=== PATIENT | male | born 1950 | race Caucasian/White ===

== ENCOUNTER 2019-04-06 07:43 | Day surgery (SDC) | payer MEDICARE, OTHER, SELFPAY ==
[2019-04-06] VITALS (7 sets, daily range): BP systolic 112–159; BP diastolic 70–94; PULSE 58–65; RESP 10–16; TEMP 36–36.7; O2SAT 92–97; BMI 22.7
--- NOTE | 2019-04-06 | PATH_ITS ---
[facility] Accession Number: [id number] . 01 Material submitted: . body - NO SITE DESIGNATED . 01 Clinical history: . GASTROINTESTINAL STROMAL TUMOR OF RECTUM . 02 Diagnosis: Rectum, Biopsy: Colorectal mucosa and anal squamous mucosa with mild chronic inflammation. No evidence of residual neoplasm. Negative for dysplasia or malignancy. [facility] 04/07/2019 1045 Local . 02 Electronically signed: . Dorian Ignacio MD, PhD, Pathologist NPI- [id number] . 01 Gross description: . NO SITE DESIGNATED: Received in formalin are 3 fragment(s) of ng, soft tissue measuring 0.1 x 0.1 x 0.1 cm to 0.3 x 0.2 x 0.2 cm which is entirely submitted and submitted entirely in 1 cassette(s) /[facility]/06/20191957 Local . 02 Pathologist provided ICD-10: C49.A5 . 02 CPT . 293078 Performed at: 01 [facility] [address], [place], [place] [id number] MD Nawaf Mcgarry MD Phone: [phone] Performed at: 02 [facility] [address] [place], [place] [id number] MD Rena Ambriz MD Phone: [phone]
[2019-04-06] MEDS: SODIUM CHLORIDE 0.9% 1,000 ML 200 ML IV (08:15)
--- NOTE | 2019-04-06 08:21 | P.HP_ITS ---
History of Present Illness History of Present Illness Date Patient Seen: 04/06/19 Time Patient Seen: 08:21 Chief complaint: [id number] Narrative: The patient is a gentleman who is here for a surveillance flexible sigmoidoscopy. He had a very small nodule removed by me that was consistent with a gist tumor. He was referred to [facility] for wider excision. Since that wider excision he has experienced urgency with defecation. Patient History Medical History (Updated 04/06/19 @ 08:22 by Magdiel Mendoza MD) GIST (gastrointestinal stroma tumor), malignant, colon (Acute) Social History household members: spouse Family & Social History Social History: household members spouse Meds Home Medications and Allergies Home Medications Medication Instructions Recorded Confirmed Type acetazolamide 125 mg PO BID 04/06/19 04/06/19 History Allergies Allergy/AdvReac Type Severity Reaction Status Date / Time No Known Drug Allergies Allergy Verified 04/06/19 08:10 Review of Systems Review of Systems ROS Unobtainable: All systems reviewed & are unremarkable except as noted in HPI and below Genitourinary Comments: Has frequency. Post radiation treatment to his prostate. Exam Vital Signs (past 8 hours): - 04/06/19 08:16 Temperature 98.1 F Pulse Rate 61 Respiratory Rate 14 Blood Pressure 159/94 H Pulse Oximetry 96 Oxygen Delivery Method Room Air Narrative Exam Narrative: Operative thin gentleman in no apparent distress. Eyes nonicteric. Lungs are clear to auscultation. No rales or rhonchi. Heart regular rate and rhythm without murmur gallop. Abdomen is scaphoid soft nontender. Assessment & Plan Assessment & Plan narrative: Flexible sigmoidoscopy. I have discussed the procedure. Risks of bleeding perforation discussed.
--- NOTE | 2019-04-06 08:24 | PM.PREOP ---
Pre-operative Note Interval Note History & Physical reviewed/Exam performed by Physician: Yes Changes to H&P: No ASA Class (for procedural sedation): II
--- NOTE | 2019-04-06 08:59 | PM.OP.ENDO ---
Operative Date/Time/Diagnoses Date of procedure: 04/06/19 Time of procedure: 08:59 Pre-op diagnosis: History of gist tumor near anal verge Post-op diagnosis: same Procedure & Clinicians Study performed: Flexible sigmoidoscopy with biopsy cold Same procedure as scheduled: Yes Indications: Surveillance Surgeon: Magdiel Mendoza Procedure Notes SCOAP/Timeout: Performed Procedure in detail: Patient is placed left lateral decubitus position underwent IV sedation directed by the surgeon. This consisted of fentanyl and Versed. Digital exam was remarkable for slight decrease in sphincter tone. I could not feel any nodules in the area though I could feel what I thought was a slight defect in the muscular wall representing the prior excision site. Scope was inserted and advanced to 20 cm. It was brought slowly out. I retroflexed in the rectum and then a vertical scar from prior resection was visible. I slowly brought the scope through the anal verge in biopsied areas that were slightly irregular in appearance. Patient tolerated the procedure well Scope withdrawal time: Not applicable Sedation minutes: 7 Findings: other findings (No obvious evidence of recurrence) Specimen(s): other (Biopsies) Complications: none Post-procedure Recommendations: Other recommendation (Re-evaluate in 1 year) Follow up: as needed Disposition: PACU
[2019-04-06] MEDS: MIDAZOLAM 5 MG/5 ML VIAL IV (09:01)
[2019-04-06] MEDS: fentaNYL 250 MCG/5 ML INJ IV (09:02)
== END 2019-04-06 09:40 | disposition home or self-care (01) ==
PROVIDERS: Family Provider Family Medicine; PCP Family Medicine; Visit Provider Specialist
PROC: 0DJD8ZZ Inspection of Lower Intestinal Tract, Via Natural or Artificial Opening Endoscopic (ICD-10-PCS; CPT 45378; principal; 2019-04-06 08:45)
DX: C49.A5 Gastrointestinal stromal tumor of rectum (principal)
CPT/HCPCS: 45330; 45331; 99152; J2250; J3010

== ENCOUNTER 2020-02-01 13:36 | Emergency (ER) | payer MEDICARE, OTHER, SELFPAY ==
[2020-02-01 13:44] VITALS: BP 109/77; PULSE 99; RESP 14; TEMP 36.7; O2SAT 99
--- NOTE | 2020-02-01 14:17 | ED.ALLEREA ---
HPI - Allergic Reaction <Minerva Martínez PA-C - Last Filed: 02/01/20 22:14> General Chief complaint: Allergic Reaction Stated complaint: BROKEN OUT IN INFLAMATTION/HIVES Time Seen by Provider: 02/01/20 13:49 Source: patient Mode of arrival: Ambulatory History of Present Illness HPI narrative: This is a 69-year-old gentleman with no history of anaphylaxis or allergy to presents to the emergency department complaining of full body hives redness and itching of his skin that began today [place] 12 30 [place]. He states that it started on his hands gradually move his arms and his legs and it is so itchy he feels he can not even sit down he is working very hard to keep himself from scratching. He says he was planning to just take some Benadryl and not come to the ED but then he felt like his tongue was ?burning? which he thinks may have been anxiety? and so he elected to come to the emergency department. He states he has not had any recent changes to his medication, the only medicine he takes is Acetazolamide for chronic dizziness issues, he does note he took a naproxen about an hour before his symptoms began this afternoon but he says that he takes these occasionally and has never had an issue with it. He said that he had cottage cheese, yogurt and some berries for breakfast and he had [employer] burger for lunch none of this is food that is new for him. He has not had any other symptoms with this, and denies respiratory symptoms, swelling of his mouth or throat, gastrointestinal symptoms, diarrhea, nausea, vomiting, syncope, lightheadedness or dizziness or any other symptoms. MD complaint: allergic reaction, hives and other (itching and redness of skin) Onset (ago): hour(s) (1.5) Exposure: unknown Symptoms: rash and itching Severity: moderate Treatment prior to arrival: none Previous Allergic Reaction History: other (mild allergies as a child) Related Data Home Medications Medication Instructions Recorded Confirmed acetazolamide 125 mg PO BID 04/06/19 04/06/19 Previous Rx's Medication Instructions Recorded prednisone 20 mg PO DAILY #4 tab 02/01/20 Allergies Allergy/AdvReac Type Severity Reaction Status Date / Time No Known Drug Allergies Allergy Verified 04/06/19 08:10 Review of Systems <Minerva Martínez PA-C - Last Filed: 02/01/20 22:14> Review of Systems Narrative: GENERAL: Denies chills, fatigue, malaise, fever, sweats. HEENT: Denies sinus pain, ear pain, sore throat, difficulty swallowing, dizziness. RESPIRATORY: Denies dyspnea, cough, wheezing, hemoptysis, sputum. CARDIOVASCULAR: Denies chest pain, palpitations, orthopnea, edema, GASTROINTESTINAL: Denies nausea, vomiting, abdominal pain, diarrhea, constipation, melena. : Denies dysuria, frequency, incontinence, hematuria, urinary retention. MUSCULOSKELETAL: denies weakness, joint pain, or bony pain SKIN: Positive for full-body red itchy non raised rash that [place] 12 [place], negative for any other skin lesions, or other NEUROLOGIC: Denies weakness, headache, numbness, change in speech, confusion, seizures, incoordination. PSYCHIATRIC: No concerning psychosocial issues. 12 point review of systems is negative except for those stated above Patient History <Minerva Martínez PA-C - Last Filed: 02/01/20 22:14> Medical History (Updated 02/01/20 @ 16:01 by Minerva Martínez PA-C) GIST (gastrointestinal stroma tumor), malignant, colon (Acute) Mitral valve prolapse (Acute) Social History household members: spouse Exam <Minerva Martínez PA-C - Last Filed: 02/01/20 22:14> Narrative Exam Narrative: GENERAL: 69 year old patient appears stated age. Well-nourished, well-developed patient, in moderate distress. HEAD: Atraumatic. Normocephalic. EYES: Pupils equal round and reactive. Extraocular motions intact. No scleral icterus. No injection or drainage. ENT: Nose without bleeding, purulent drainage. Tongue is not enlarged, there is no evidence of angioedema, Throat without erythema, tonsillar hypertrophy or exudate. Airway patent. NECK: Trachea midline. Non tender, no stridor with auscultation of trachea CARDIOVASCULAR: Regular rate and rhythm without murmurs, gallops, or rubs. RESPIRATORY: Clear to auscultation. Breath sounds equal bilaterally. No wheezes, rales, or rhonchi. GASTROINTESTINAL: Abdomen soft, non-tender, nondistended. EXTREMITIES: No edema or joint tenderness. BACK: Nontender without deformity or crepitance. No flank tenderness. NEURO: AOx3. SKIN: There is a macular erythematous rash diffusely covering his entire visualized skin area including his legs, torso, arms and back it is less apparent on his face, it is non bullous, non blistering, without any areas of open skin. Palms are also slightly erythematous. Initial Vital Signs Initial Vital Signs: Vital Signs Temperature 98.0 F 02/01/20 13:44 Pulse Rate 99 H 02/01/20 13:44 Respiratory Rate 14 02/01/20 13:44 Blood Pressure 109/77 02/01/20 13:44 Pulse Oximetry 99 02/01/20 13:44 <Deedee Eduardo DO - Last Filed: 02/06/20 07:22> Initial Vital Signs Initial Vital Signs: Vital Signs Temperature 98.0 F 02/01/20 13:44 Pulse Rate 99 H 02/01/20 13:44 Respiratory Rate 14 02/01/20 13:44 Blood Pressure 109/77 02/01/20 13:44 Pulse Oximetry 99 02/01/20 13:44 Scores <Minerva Martínez PA-C - Last Filed: 02/01/20 22:14> GCS Brie coma scale eye opening: Spontaneous [place] coma scale verbal response: Orientated B[place] coma scale motor response: Obey commands Brie coma scale total score: 15 Course <MARISOL Glez Last Filed: 02/01/20 22:14> Course Course Narrative: Patient is feeling significantly better, the redness and itchiness of his skin is almost completely resolved he has not developed any new symptoms, fluids and famotidine are still going in. 15:05 Orders Ordered: Discontinued Medications Diphenhydramine HCl (Benadryl) 25 mg IV NOW ONE Stop: 02/01/20 14:19 Last Admin: 02/01/20 14:49 Dose: 25 mg Documented by: SARAH Sodium Chloride (Normal Saline 0.9%) 1,000 mls @ 500 mls/hr IV BOLUS ONE Stop: 02/01/20 16:26 Last Infusion: 02/01/20 16:07 Dose: 0 mls/hr Documented by: Admin: 02/01/20 14:49 Dose: 500 mls/hr Documented by: SARAH Famotidine (Pepcid) 20 mg in 50 mls @ 200 mls/hr IV NOW ONE Stop: 02/01/20 14:32 Last Infusion: 02/01/20 15:33 Dose: 0 mls/hr Documented by: Admin: 02/01/20 14:49 Dose: 200 mls/hr Documented by: SARAH Methylprednisolone (Solu-Medrol 125 Mg Vial) 125 mg IV NOW ONE Stop: 02/01/20 14:19 Last Admin: 02/01/20 14:49 Dose: 125 mg Documented by: SARAH Vital Signs Vital signs: Vital Signs - 8 hr 02/01/20 16:08 Pulse Rate 68 Respiratory Rate 14 Blood Pressure 116/69 Pulse Oximetry 99 <Deedee Eduardo DO - Last Filed: 02/06/20 07:22> Orders Ordered: Discontinued Medications Diphenhydramine HCl (Benadryl) 25 mg IV NOW ONE Stop: 02/01/20 14:19 Last Admin: 02/01/20 14:49 Dose: 25 mg Documented by: SARAH Sodium Chloride (Normal Saline 0.9%) 1,000 mls @ 500 mls/hr IV BOLUS ONE Stop: 02/01/20 16:26 Last Infusion: 02/01/20 16:07 Dose: 0 mls/hr Documented by: Admin: 02/01/20 14:49 Dose: 500 mls/hr Documented by: SARAH Famotidine (Pepcid) 20 mg in 50 mls @ 200 mls/hr IV NOW ONE Stop: 02/01/20 14:32 Last Infusion: 02/01/20 15:33 Dose: 0 mls/hr Documented by: Admin: 02/01/20 14:49 Dose: 200 mls/hr Documented by: SARAH Methylprednisolone (Solu-Medrol 125 Mg Vial) 125 mg IV NOW ONE Stop: 02/01/20 14:19 Last Admin: 02/01/20 14:49 Dose: 125 mg Documented by: SARAH Vital Signs Vital signs: Vital Signs - 8 hr 02/01/20 16:08 Pulse Rate 68 Respiratory Rate 14 Blood Pressure 116/69 Pulse Oximetry 99 MDM - Allergic Reaction <Minerva Martínez PA-C - Last Filed: 02/01/20 22:14> Differential Diagnosis Differential diagnosis: Likely anaphylaxis, allergic reaction, contact dermatitis, adverse reaction to drug and urticaria Medical Records Attestation: I reviewed the patient's medical records. Lab Data Attestation: I reviewed the patient's lab results. Result diagrams: 02/01/20 14:30 02/01/20 14:30 Labs: Lab Results 02/01/20 02/01/20 Range/Units 14:30 14:30 WBC 7.3 (4.5-11.0) X10^3/uL RBC 4.82 (4.5-5.9) X10^6/uL Hgb 16.9 (13.5-17.5) g/dL Hct 48.7 (41-53) % MCV 100.9 H (80-100) fL MCH 35.0 H (26-34) PG MCHC 34.7 (30-36) % RDW 12.3 (11.6-14.8) % Plt Count 275 (150-400) X10^3/uL Neut % (Auto) 70.1 (50-75) % Lymph % (Auto) 18.9 L (25-40) % [place] % (Auto) 8.3 (3-14) % Eos % (Auto) 2.2 (2-4) % Baso % (Auto) 0.5 (0-2) % Neut # (Auto) 5100 (2926-4937) /uL Lymph # (Auto) 1400 (6380-9237) /uL [place] # (Auto) 600 (0-900) /uL Eos # (Auto) 200 (0-450) /uL Baso # (Auto) 0 (0-100) /uL Sodium 137 (137-145) mmol/L Potassium 4.4 (3.4-5.1) mmol/L Chloride 103 (98-107) mmol/L Carbon Dioxide 26 (22-32) mmol/L BUN 24 H (9-20) mg/dL Creatinine 1.11 (0.66-1.25) mg/dL Estimated GFR > 60.0 (>60) mL/min BUN/Creatinine Ratio 21.6 (6-22) Glucose 117 H (80-110) mg/dL Calcium 9.9 (8.4-10.2) mg/dL Total Bilirubin 0.6 (0.2-1.3) mg/dL AST 30 (17-59) IU/L ALT 16 (<50) IU/L Alkaline Phosphatase 64 (38-126) U/L Total Protein 7.1 (6.3-8.2) g/dL Albumin 4.5 (3.5-5.0) g/dL Globulin 2.6 (1.7-4.1) g/dL Albumin/Globulin Ratio 1.7 (1.0-2.8) MDM Narrative Medical decision making narrative: This is a 69-year-old male with history of GIST and chronic vertigo who presents complaining of a full-body itchy rash that developed rapidly over the course of the last 2 hours beginning while he was [place] the [place] 07 26. No history of similar. No medication changes or new environmental or food exposures. Differential diagnoses considered include allergic reaction, drug reaction, phototoxic reaction, contact dermatitis anaphylaxis, photoallergic eruption, angioedema Patient was not in any respiratory distress had no GI symptoms, no low BP or systemic symptoms suggestive of anaphylaxis; I have low suspicion for a drug reaction as he has had no new medications recently or changes to his medicine, it is possible that he had a photo allergic eruption, his rash was most most consistent with a photo toxic eruption, as it resembled a sunburn though it was notably present even on areas not exposed to sun and he has no history of similar; etiology of his reaction is unclear, however he had a diffuse full body rash that was very pruritic. He was treated with Benadryl, Pepcid, Solu-Medrol IV and IV fluids and had complete relief of his symptoms. He was discharged with instructions to have close follow-up with his PCP, advised he may consider seeing an senior windows systems engineer, advised to discontinue any use of naproxen until further notice. He was also given a prescription for prednisone and advised to continue taking Benadryl for the next few days and carry it with him in the event of future reactions. Emergency return precautions were provided, all questions were answered. <Deedee Eduardo, DO - Last Filed: 02/06/20 07:22> Lab Data Labs: Lab Results 02/01/20 02/01/20 Range/Units 14:30 14:30 WBC 7.3 (4.5-11.0) X10^3/uL RBC 4.82 (4.5-5.9) X10^6/uL Hgb 16.9 (13.5-17.5) g/dL Hct 48.7 (41-53) % MCV 100.9 H (80-100) fL MCH 35.0 H (26-34) PG MCHC 34.7 (30-36) % RDW 12.3 (11.6-14.8) % Plt Count 275 (150-400) X10^3/uL Neut % (Auto) 70.1 (50-75) % Lymph % (Auto) 18.9 L (25-40) % [place] % (Auto) 8.3 (3-14) % Eos % (Auto) 2.2 (2-4) % Baso % (Auto) 0.5 (0-2) % Neut # (Auto) 5100 (8458-8639) /uL Lymph # (Auto) 1400 (3810-9259) /uL [place] # (Auto) 600 (0-900) /uL Eos # (Auto) 200 (0-450) /uL Baso # (Auto) 0 (0-100) /uL Sodium 137 (137-145) mmol/L Potassium 4.4 (3.4-5.1) mmol/L Chloride 103 (98-107) mmol/L Carbon Dioxide 26 (22-32) mmol/L BUN 24 H (9-20) mg/dL Creatinine 1.11 (0.66-1.25) mg/dL Estimated GFR > 60.0 (>60) mL/min BUN/Creatinine Ratio 21.6 (6-22) Glucose 117 H (80-110) mg/dL Calcium 9.9 (8.4-10.2) mg/dL Total Bilirubin 0.6 (0.2-1.3) mg/dL AST 30 (17-59) IU/L ALT 16 (<50) IU/L Alkaline Phosphatase 64 (38-126) U/L Total Protein 7.1 (6.3-8.2) g/dL Albumin 4.5 (3.5-5.0) g/dL Globulin 2.6 (1.7-4.1) g/dL Albumin/Globulin Ratio 1.7 (1.0-2.8) Discharge Plan Departure Patient Disposition: Home Clinical Impression: Urticaria Allergic reaction Qualifiers: Encounter type: initial encounter Qualified Code(s): T78.40XA - Allergy, unspecified, initial encounter Discharge Date/Time: 02/01/20 16:08 Instructions: DI for Hives, DI for Adverse Drug Reaction -- Allergic Activity Restrictions/Additional Instructions: Thank you for letting us to be part of your care in the emergency department today. There is no evidence of an emergent or life threatening illness at this time, but follow up with your doctor in 1-2 days is recommended nonetheless to continue to rule out serious underlying causes of your symptoms. Please call the office for an appointment. Please return to the Emergency Department for any worsening or persistent symptoms. Please take medications as directed. Strongly recommend that you follow-up with your primary care physician as a post emergency department follow-up visit, and it may be advisable to see an senior windows systems engineer. Until we have more information it may be busch to avoid taking naproxen. Although the cause of your allergic reaction today remains unclear. I recommend that you carry Benadryl with you, you can also consider carrying Pepcid and is safe to take both of these if you have a similar reaction in the future although you should definitely seek medical care if you do. I also recommend you take Benadryl and the prescription for steroids as prescribed to ensure that you do not have a rebound reaction over the next 24-48 hours. Prescriptions: New prednisone 20 mg tablet 20 mg PO DAILY Qty: 4 RF: 0 No Action acetazolamide 250 mg Tablet 125 mg PO BID RF: 0 Referrals: Harshad Fernandez MD [Primary Care Provider] - <Deedee Eduardo DO - Last Filed: 02/06/20 07:22> [facility] ED Attending Graceature Attestation: I was immediately available in the department for consultation. Documentation has been reviewed. I agree with assessment and plan.
[2020-02-01 14:43] LABS: Add Manual Diff / Slide Review NO; Basophils Absolute Auto 0 /uL (0-100); Basophils Percent Auto 0.5 % (0-2); Eosinophils Absolute Auto 200 /uL (0-450); Eosinophils Percent Auto 2.2 % (2-4); Hematocrit 48.7 % (41-53); Hemoglobin 16.9 g/dL (13.5-17.5); Lymphocytes Absolute Auto 1400 /uL (1100-4500); Lymphocytes Percent Auto 18.9 % (25-40); Mean Corpuscular HGB Conc 34.7 % (30-36); Mean Corpuscular Volume 100.9 fL (80-100); Monocytes Absolute Auto 600 /uL (0-900); Monocytes Percent Auto 8.3 % (3-14); Neutrophils Absolute Auto 5100 /uL (1500-7000); Neutrophils Percent Auto 70.1 % (50-75); Platelet Count 275 X10^3/uL (150-400); Red Blood Cell Count 4.82 X10^6/uL (4.5-5.9); Red Cell Distribution Width 12.3 % (11.6-14.8); White Blood Cell Count 7.3 X10^3/uL (4.5-11.0)
[2020-02-01] MEDS: diphenhydrAMINE 50 MG/ML VIAL 25 MG IV (14:49)
[2020-02-01] MEDS: FAMOTIDINE 20 MG/50 ML PIGGYBACK 200 MG IV (14:49)
[2020-02-01] MEDS: methylPREDNISolone 125 MG/2 ML VIAL IV (14:49)
[2020-02-01] MEDS: SODIUM CHLORIDE 0.9% 1,000 ML 500 ML IV (14:49)
[2020-02-01 14:58] LABS: Alanine Aminotransferase 16 IU/L (<50); Albumin 4.5 g/dL (3.5-5.0); Albumin Globulin Ratio 1.7 (1.0-2.8); Alkaline Phosphatase 64 U/L (38-126); Aspartate Aminotransferase 30 IU/L (17-59); BUN Creatinine Ratio 21.6 (6-22); Bilirubin Total 0.6 mg/dL (0.2-1.3); Blood Urea Nitrogen 24 mg/dL (9-20); Calcium 9.9 mg/dL (8.4-10.2); Carbon Dioxide 26 mmol/L (22-32); Chloride 103 mmol/L (98-107); Estimated Glomerular Filt Rate > 60.0 mL/min (>60); Globulin 2.6 g/dL (1.7-4.1); Glucose 117 mg/dL (80-110); HEMOLYSIS < 15 (0-50); Potassium 4.4 mmol/L (3.4-5.1); Sodium 137 mmol/L (137-145); Total Protein 7.1 g/dL (6.3-8.2)
--- NOTE | 2020-02-01 15:30 | PC.NURSE ---
Post manager media, redness of skin has decreased, denies itchiness now. Some hives still visible. Feeling drowsy from meds. will be picking pt up from ER.
[2020-02-01 16:08] VITALS: BP 116/69; PULSE 68; RESP 14; O2SAT 99
== END 2020-02-01 16:08 | disposition home or self-care (01) ==
PROVIDERS: Emergency Provider Student in an Organized Health Care Education/Training Program; Family Provider Family Medicine; PCP Family Medicine
DX: T78.40XA Allergy, unspecified, initial encounter (principal); L50.9 Urticaria, unspecified
CPT/HCPCS: 80053; 85025; 96365; 96375; 99283; 99284; J1200; J2930

== ENCOUNTER → 2020-12-18 07:03 | Outpatient (CLI) | payer MEDICARE, OTHER, SELFPAY ==
--- NOTE | 2020-12-18 | DI.MRI.S_ITS ---
PROCEDURE: MR SHOULDER RT WO/W CON INDICATIONS: Pain in right shoulder TECHNIQUE: Noncontrast oblique coronal T1 spin echo and T2 fast spin echo with fat saturation, oblique sagittal T1 spin echo and T2 fast spin echo with fat saturation, axial T1 spin echo and T2 fast spin echo with fat saturation through the shoulder. Post-contrast oblique coronal, oblique sagittal, and axial T1 spin echo with fat saturation through the shoulder. COMPARISON: None. FINDINGS: Image quality: Excellent. Rotator cuff: Tendinosis and moderate grade articular and bursal surface partial thickness tear involving distal supraspinatus is seen at its insertion on the humeral head extending to musculotendinous junction. Distal infraspinatus tendinosis and low-grade articular surface partial-thickness tear is seen. Tendinosis and low grade intrasubstance partial-thickness tear involving distal subscapularis is seen. No full-thickness rotator cuff tendon rupture. Sagittal images demonstrate no significant muscle atrophy. Bones and bursae: No suspicious bone marrow enhancement. Moderate acromioclavicular joint osteoarthritic changes are seen with downward osteophyte formation depressing the musculotendinous junction of supraspinatus. Moderate glenohumeral joint osteoarthritic changes also noted. There is small to moderate amount of joint effusion and subacromial subdeltoid bursal fluid. Capsule and soft tissues: No suspicious soft tissue enhancement. Fraying of posterior superior labrum with internal signal abnormality is seen at 11 to 12 o'clock position. Signal abnormality and contour irregularity involving anterior inferior labrum at 4 to 6 o'clock position is also seen. The long head of the biceps tendon demonstrates normal location and morphology. The rotator interval appears normal, without fibrosis. The coracohumeral ligament is normal in thickness. IMPRESSION: 1. Tendinosis and moderate grade articular and bursal surface partial thickness tear involving distal supraspinatus extending to musculotendinous junction. Distal infraspinatus tendinosis and low-grade articular surface partial-thickness tear. Distal subscapularis tendinosis and low-grade intrasubstance partial-thickness tear. No full-thickness rotator cuff tendon rupture. 2. Moderate acromioclavicular joint and glenohumeral joint osteoarthritis. Moderate amount of joint effusion and subacromial subdeltoid bursal fluid. 3. Suggestion of posterior superior labral tear at 11 to 12 o'clock position and anterior-inferior labral tear at 4 to 6 o'clock position. 4. No abnormal soft tissue enhancement. No abnormal intraosseous enhancement. Dictated by: Ino Meza M.D. on 12/18/2020 at 13:21 Approved by: Ino Meza M.D. on 12/18/2020 at 13:31
== END ==
PROVIDERS: PCP Family Medicine; Referring Provider Orthopaedic Surgery; Visit Provider Orthopaedic Surgery
DX: M25.511 Pain in right shoulder (principal); M75.111 Incomplete rotator cuff tear or rupture of right shoulder, not specified as traumatic; M19.011 Primary osteoarthritis, right shoulder; M25.411 Effusion, right shoulder; M89.9 Disorder of bone, unspecified
CPT/HCPCS: 73223

== ENCOUNTER → 2021-02-13 14:23 | Outpatient (CLI) | payer MEDICARE, OTHER, SELFPAY ==
[2021-02-13 14:44] LABS: COVID19 -Nasal RAPID Negative (Negative)
== END ==
PROVIDERS: PCP Family Medicine; Visit Provider Physician Assistant
DX: Z20.822 Contact with and (suspected) exposure to COVID-19 (principal)
CPT/HCPCS: 87635

== ENCOUNTER → 2022-03-13 07:42 | Outpatient (CLI) | payer MEDICARE, OTHER, SELFPAY ==
--- NOTE | 2022-03-13 | DI.MRI.S_ITS ---
PROCEDURE: MR SHOULDER RT WO CON INDICATIONS: Rotator cuff tear or rupture of right TECHNIQUE: Noncontrast oblique coronal T2 fast spin echo with fat saturation, oblique sagittal T1 spin echo and T2 fast spin echo with fat saturation, axial T1 spin echo and T2 fast spin echo with fat saturation through the shoulder. COMPARISON: None. FINDINGS: Image quality: Excellent. Rotator cuff: Moderate grade articular and bursal surface partial thickness tear involving distal supraspinatus at its insertion on the humeral head is seen extending to musculotendinous junction. Distal infraspinatus tendinosis is noted. Low to moderate grade intrasubstance partial-thickness tear involving superior to mid fibers of distal subscapularis is seen. No full-thickness rotator cuff tendon rupture. Sagittal images demonstrate mild to moderate supraspinatus muscle atrophy. Bones and bursae: No bone marrow contusions or fractures. Moderate acromioclavicular joint osteoarthritic changes are seen with joint space narrowing and downward osteophyte formation depressing the musculotendinous junction of supraspinatus. Mild to moderate glenohumeral joint osteoarthritic changes also seen. There is small to moderate amount of subacromial subdeltoid bursal fluid. No gross loose bodies. Capsule and soft tissues: Subtle signal abnormality and contour irregularity involving superior anterior labrum at 12 to 1 o'clock position is seen concerning for subtle superior anterior labral tear. Signal abnormality is also seen involving anterior inferior labrum at 5 to 6 o'clock position. The long head of the biceps tendon demonstrates normal location and morphology. The rotator interval appears normal, without fibrosis. The coracohumeral ligament is normal in thickness. IMPRESSION: 1. Moderate grade articular and bursal surface partial thickness tear involving distal supraspinatus extending to musculotendinous junction. Distal infraspinatus tendinosis. Low to moderate grade partial-thickness tear involving superior to mid fibers of distal subscapularis. No full-thickness rotator cuff tendon rupture. Mild to moderate supraspinatus muscle atrophy. 2. Moderate acromioclavicular joint osteoarthritis and [id number] glenohumeral joint osteoarthritis. Small to moderate amount of subacromial subdeltoid bursal fluid. No gross loose bodies. 3. Suggestion of anterior-inferior labral tear at 5 to 6 o'clock position. Possible very subtle superior anterior labral tear at 12 to 1 o'clock position. Dictated by: Ino Meza M.D. on 03/13/2022 at 12:31 Approved by: Ino Meza M.D. on 03/13/2022 at 12:58
== END ==
PROVIDERS: PCP Family Medicine; Referring Provider Physician Assistant Medical; Visit Provider Physician Assistant Medical
DX: M75.111 Incomplete rotator cuff tear or rupture of right shoulder, not specified as traumatic (principal); M19.011 Primary osteoarthritis, right shoulder
CPT/HCPCS: 73221

== ENCOUNTER → 2023-06-14 08:48 | Outpatient (CLI) | payer MEDICARE, SELFPAY ==
--- NOTE | 2023-06-14 08:50 | DI.MRI.S_ITS ---
PROCEDURE: MR ABDOMEN WO/W CON INDICATIONS: GASTROINTESTINAL STROMA TUMOR TECHNIQUE: Coronal HASTE, axial 2D FLASH in- and [id number]; axial breath-hold T2 FSE. Dynamic axial VIBE during the administration of contrast; post-contrast coronal VIBE or 2D FLASH with fat saturation from the hepatic dome to the iliac crests. Optional diffusion weighted imaging and ADC may be performed. COMPARISON: [facility], , MR PELVIS WO/W CON, 06/15/2023, 9:04. Outside Facility, [facility], MRI ABDOMEN/PELVIS OUTSIDE FILMS, 03/05/2022, 14:13. FINDINGS: Image quality: Excellent. Lung bases: No basal pleural effusions. Heart size is normal. Solid organs: Liver is normal in size and enhancement. Tiny T2 hyperintense cyst in the left lobe of the liver, unchanged. Gallbladder is unremarkable. Biliary system is non dilated. Pancreas is normal in morphology. No pancreatic ductal dilatation. Spleen is normal in size and enhancement. No adrenal nodules. Both kidneys demonstrate normal size and enhancement, without hydronephrosis. Nodes and vessels: No retroperitoneal or mesenteric adenopathy by size criteria. Aorta and inferior vena cava are normal in size. Bowel and peritoneum: Unenhanced bowel loops are normal in caliber. Diverticulosis. The appendix is not dilated. No free fluid. No mass, suspicious enhancement, or restricted diffusion. Bones and soft tissues: No ventral hernias. Bone marrow is normal in overall signal. IMPRESSION: No abdominal mass or suspicious enhancement in the abdomen. No adenopathy. Please see separately dictated MRI pelvis. Dictated by: Flavio Dhillon M.D. on 06/16/2023 at 8:39 Approved by: Flavio Dhillon M.D. on 06/16/2023 at 8:47
== END ==
PROVIDERS: PCP Family Medicine; Referring Provider Nurse Practitioner; Visit Provider Nurse Practitioner
DX: C49.A4 Gastrointestinal stromal tumor of large intestine (principal)
CPT/HCPCS: 74183; A9579

== ENCOUNTER → 2023-06-15 08:57 | Outpatient (CLI) | payer MEDICARE, SELFPAY ==
--- NOTE | 2023-06-15 08:58 | DI.MRI.S_ITS ---
PROCEDURE: MR PELIS WO/W CON INDICATIONS: MALIGNANT COLON CANCER TECHNIQUE: Coronal HASTE, sagittal T2 FSE, axial T1 FSE, axial and coronal nonbreath-hold T2 FSE. Axial dynamic VIBE during administration of contrast. Post-contrast axial and coronal VIBE/2-D FLASH with fat saturation from the iliac crests to the symphysis. Optional diffusion weighted imaging and ADC may be performed. COMPARISON: [facility], MR, PELVIS W&WO CONTRAST, 10/28/2014, 7:43. FINDINGS: Image quality: Diagnostic. Rectum: Morphology: Polypoid Clock face of tumor involvement: 7-8 o'clock Mucinous (high T2 signal): Negative Craniocaudal length: 1 cm Distance to anal verge: 4.3 cm Distance to top of sphincter complex/anorectal junction: 1.2 cm Relationship to anterior peritoneal reflection: Below Tumor at or below puborectalis sling: At the puborectalis sling T staging: Depth of extramural invasion: 4 mm mm. Extramural vascular invasion: None. T3 tumors only: distance to mesorectal fascia (circumferential resection margin): 1 mm Pelvic organ involvement: Genitourinary: None. Pelvic sidewall (obturator internus, piriformis, ischiococcygeus muscles): Negative Pelvic floor (pubococcygeus, iliococcygeus, puborectalis, levator plate): Possible invasion of the puborectalis muscle (series 21, image 60). Sacrum: None Vessels (internal and external iliac arteries and veins): None Nerves (lumbosacral nerve roots): None Regional lymph nodes (mesorectal, inguinal, iliac): None Other bowel and peritoneum: No pathologic free pelvic fluid. More proximal colon and small bowel loops are normal in caliber. Bones: Marrow is normal in overall signal. IMPRESSION: Suboptimal evaluation due to motion artifact. Additionally, the location of the mass, sitting directly on the puborectalis muscle, makes margins difficult to assess. Persistent enhancing, polypoidal mass measuring 1.0 x 0.9 cm of the low rectum. Suspect T3 disease, with possible early T4 disease present. No evidence of sherlyn disease or EMVI. Dictated by: Darío Hilario M.D. on 06/16/2023 at 9:17 Approved by: Darío Hilario M.D. on 06/16/2023 at 9:35
== END ==
PROVIDERS: PCP Family Medicine; Referring Provider Nurse Practitioner; Visit Provider Nurse Practitioner
DX: C49.A4 Gastrointestinal stromal tumor of large intestine
CPT/HCPCS: 72197

== ENCOUNTER → 2023-10-24 10:05 | Outpatient (CLI) | payer MEDICARE, SELFPAY ==
[2023-10-24 11:04] LABS: Add Manual Diff / Slide Review NO; Basophils Absolute Auto 0 /uL (0-100); Basophils Percent Auto 0.6 % (0-2); Eosinophils Absolute Auto 200 /uL (0-450); Eosinophils Percent Auto 2.9 % (2-4); Hematocrit 46.5 % (41-53); Lymphocytes Absolute Auto 1000 /uL (1100-4500); Lymphocytes Percent Auto 14.4 % (25-40); Mean Corpuscular HGB Conc 34.3 % (30-36); Mean Corpuscular Hemoglobin 34.7 PG (26-34); Mean Corpuscular Volume 101.1 fL (80-100); Monocytes Absolute Auto 600 /uL (0-900); Monocytes Percent Auto 9.6 % (3-14); Neutrophils Absolute Auto 4900 /uL (1500-7000); Neutrophils Percent Auto 72.5 % (50-75); Platelet Count 255 X10^3/uL (150-400); Red Cell Distribution Width 12.8 % (11.6-14.8); White Blood Cell Count 6.7 X10^3/uL (4.5-11.0)
[2023-10-24 11:30] LABS: Alanine Aminotransferase 28 IU/L (<50); Albumin 4.1 g/dL (3.5-5.0); Albumin Globulin Ratio 1.5 (1.0-2.8); Alkaline Phosphatase 69 U/L (38-126); Aspartate Aminotransferase 32 IU/L (17-59); Bilirubin Total 0.7 mg/dL (0.2-1.3); Blood Urea Nitrogen 20 mg/dL (9-20); Calcium 9.5 mg/dL (8.4-10.2); Carbon Dioxide 32 mmol/L (22-32); Chloride 103 mmol/L (98-107); Cholesterol 223 mg/dL (140-199); Estimated Glomerular Filt Rate > 60 mL/min (>60); Globulin 2.8 g/dL (1.7-4.1); Glucose 97 mg/dL (80-110); HDL Cholesterol 72 mg/dL (40-60); HEMOLYSIS < 15 (0-50); LDL Cholesterol Calculated 135 mg/dL (<100); Potassium 4.7 mmol/L (3.4-5.1); Sodium 136 mmol/L (137-145); Total Protein 6.9 g/dL (6.3-8.2); Triglycerides 78 mg/dL (35-150)
[2023-10-24 11:57] LABS: Prostate Specific Antigen Scrn 0.575 ng/mL (0.1-4.0)
== END ==
PROVIDERS: PCP Family Medicine; Referring Provider Family Medicine; Visit Provider Family Medicine
DX: Z12.5 Encounter for screening for malignant neoplasm of prostate (principal); E78.5 Hyperlipidemia, unspecified; Z85.46 Personal history of malignant neoplasm of prostate
CPT/HCPCS: 36415; 80053; 80061; 85025; G0103

== ENCOUNTER → 2023-11-20 09:56 | Outpatient (CLI) | payer MEDICARE, SELFPAY ==
[2023-11-20 10:39] LABS: Add Manual Diff / Slide Review NO; Basophils Absolute Auto 100 /uL (0-100); Basophils Percent Auto 1.1 % (0-2); Eosinophils Absolute Auto 200 /uL (0-450); Eosinophils Percent Auto 4.3 % (2-4); Hematocrit 44.6 % (41-53); Lymphocytes Absolute Auto 1200 /uL (1100-4500); Lymphocytes Percent Auto 22.3 % (25-40); Mean Corpuscular HGB Conc 33.7 % (30-36); Mean Corpuscular Hemoglobin 34.5 PG (26-34); Mean Corpuscular Volume 102.4 fL (80-100); Monocytes Absolute Auto 500 /uL (0-900); Monocytes Percent Auto 8.3 % (3-14); Neutrophils Absolute Auto 3600 /uL (1500-7000); Platelet Count 272 X10^3/uL (150-400); Red Blood Cell Count 4.35 X10^6/uL (4.5-5.9); Red Cell Distribution Width 12.7 % (11.6-14.8); White Blood Cell Count 5.6 X10^3/uL (4.5-11.0)
[2023-11-20 11:18] LABS: Alanine Aminotransferase 26 IU/L (<50); Albumin 4.3 g/dL (3.5-5.0); Albumin Globulin Ratio 1.7 (1.0-2.8); Alkaline Phosphatase 78 U/L (38-126); Aspartate Aminotransferase 33 IU/L (17-59); BUN Creatinine Ratio 27.8 (6-22); Bilirubin Total 0.7 mg/dL (0.2-1.3); Blood Urea Nitrogen 20 mg/dL (9-20); Carbon Dioxide 31 mmol/L (22-32); Chloride 104 mmol/L (98-107); Estimated Glomerular Filt Rate > 60 mL/min (>60); Globulin 2.5 g/dL (1.7-4.1); Glucose 98 mg/dL (80-110); HEMOLYSIS 16 (0-50); Phosphorous 2.7 mg/dL (2.3-3.7); Potassium 4.4 mmol/L (3.4-5.1); Sodium 138 mmol/L (137-145); Total Protein 6.8 g/dL (6.3-8.2)
[2023-11-20 11:48] LABS: Thyroid Stimulating Hormone 2.05 uIU/mL (0.47-4.68)
== END ==
LOC: LAB 10:00
PROVIDERS: PCP Family Medicine; Referring Provider Physician Assistant; Visit Provider Physician Assistant
DX: C49.A4 Gastrointestinal stromal tumor of large intestine (principal)
CPT/HCPCS: 36415; 80053; 84100; 84443; 85025

== ENCOUNTER → 2023-12-04 08:14 | Outpatient (CLI) | payer MEDICARE, SELFPAY ==
[2023-12-04 09:06] LABS: Add Manual Diff / Slide Review NO; Basophils Absolute Auto 0 /uL (0-100); Basophils Percent Auto 0.7 % (0-2); Eosinophils Absolute Auto 200 /uL (0-450); Eosinophils Percent Auto 2.9 % (2-4); Hematocrit 43.2 % (41-53); Hemoglobin 14.9 g/dL (13.5-17.5); Lymphocytes Absolute Auto 1200 /uL (1100-4500); Lymphocytes Percent Auto 18.8 % (25-40); Mean Corpuscular HGB Conc 34.4 % (30-36); Mean Corpuscular Hemoglobin 34.6 PG (26-34); Mean Corpuscular Volume 100.8 fL (80-100); Monocytes Absolute Auto 500 /uL (0-900); Neutrophils Absolute Auto 4400 /uL (1500-7000); Neutrophils Percent Auto 69.6 % (50-75); Platelet Count 278 X10^3/uL (150-400); Red Blood Cell Count 4.29 X10^6/uL (4.5-5.9); Red Cell Distribution Width 12.8 % (11.6-14.8); White Blood Cell Count 6.4 X10^3/uL (4.5-11.0)
[2023-12-04 09:20] LABS: Alanine Aminotransferase 101 IU/L (<50); Albumin 4.2 g/dL (3.5-5.0); Albumin Globulin Ratio 1.8 (1.0-2.8); Alkaline Phosphatase 75 U/L (38-126); Aspartate Aminotransferase 75 IU/L (17-59); Bilirubin Total 0.8 mg/dL (0.2-1.3); Blood Urea Nitrogen 17 mg/dL (9-20); Calcium 9.2 mg/dL (8.4-10.2); Carbon Dioxide 27 mmol/L (22-32); Chloride 103 mmol/L (98-107); Estimated Glomerular Filt Rate > 60 mL/min (>60); Globulin 2.3 g/dL (1.7-4.1); Glucose 99 mg/dL (80-110); HEMOLYSIS < 15 (0-50); Phosphorous 3.1 mg/dL (2.3-3.7); Sodium 136 mmol/L (137-145); Total Protein 6.5 g/dL (6.3-8.2)
[2023-12-04 09:46] LABS: Thyroid Stimulating Hormone 3.42 uIU/mL (0.47-4.68)
[2023-12-04 10:22] LABS: Folate > 20.0 ng/mL (2.76-20.0); Vitamin B12 810 pg/mL (239-931)
== END ==
PROVIDERS: Family Provider Family Medicine; PCP Family Medicine; Referring Provider Physician Assistant; Visit Provider Physician Assistant
DX: C49.A4 Gastrointestinal stromal tumor of large intestine (principal)
CPT/HCPCS: 36415; 80053; 82607; 82746; 84100; 84443; 85025

== ENCOUNTER → 2023-12-18 08:44 | Outpatient (CLI) | payer MEDICARE, SELFPAY ==
[2023-12-18 09:53] LABS: Add Manual Diff / Slide Review NO; Basophils Absolute Auto 0 /uL (0-100); Basophils Percent Auto 0.4 % (0-2); Eosinophils Absolute Auto 200 /uL (0-450); Eosinophils Percent Auto 2.7 % (2-4); Hematocrit 43.6 % (41-53); Hemoglobin 14.7 g/dL (13.5-17.5); Lymphocytes Absolute Auto 1000 /uL (1100-4500); Lymphocytes Percent Auto 17.3 % (25-40); Mean Corpuscular HGB Conc 33.8 % (30-36); Mean Corpuscular Hemoglobin 34.4 PG (26-34); Mean Corpuscular Volume 101.8 fL (80-100); Monocytes Absolute Auto 600 /uL (0-900); Monocytes Percent Auto 9.8 % (3-14); Neutrophils Absolute Auto 4100 /uL (1500-7000); Neutrophils Percent Auto 69.8 % (50-75); Platelet Count 272 X10^3/uL (150-400); Red Blood Cell Count 4.29 X10^6/uL (4.5-5.9); Red Cell Distribution Width 13.1 % (11.6-14.8); White Blood Cell Count 5.8 X10^3/uL (4.5-11.0)
[2023-12-18 10:17] LABS: Alanine Aminotransferase 229 IU/L (<50); Albumin 4.2 g/dL (3.5-5.0); Albumin Globulin Ratio 1.9 (1.0-2.8); Alkaline Phosphatase 76 U/L (38-126); Aspartate Aminotransferase 147 IU/L (17-59); BUN Creatinine Ratio 15.5 (6-22); Bilirubin Total 0.7 mg/dL (0.2-1.3); Blood Urea Nitrogen 13 mg/dL (9-20); Calcium 9.1 mg/dL (8.4-10.2); Carbon Dioxide 30 mmol/L (22-32); Chloride 104 mmol/L (98-107); Estimated Glomerular Filt Rate > 60 mL/min (>60); Globulin 2.2 g/dL (1.7-4.1); Glucose 97 mg/dL (80-110); HEMOLYSIS < 15 (0-50); Phosphorous 2.6 mg/dL (2.3-3.7); Sodium 139 mmol/L (137-145); Total Protein 6.4 g/dL (6.3-8.2)
[2023-12-18 10:54] LABS: Thyroid Stimulating Hormone 2.26 uIU/mL (0.47-4.68)
== END ==
PROVIDERS: Family Provider Family Medicine; PCP Family Medicine; Referring Provider Physician Assistant; Visit Provider Physician Assistant
DX: C49.A4 Gastrointestinal stromal tumor of large intestine (principal)
CPT/HCPCS: 36415; 80053; 84100; 84443; 85025

== ENCOUNTER → 2023-12-27 15:20 | Outpatient (CLI) | payer MEDICARE, SELFPAY ==
--- NOTE | 2023-12-27 15:22 | DI.RAD.S_ITS ---
PROCEDURE: XR FOOT LT MIN 3V INDICATIONS: Left foot pain TECHNIQUE: 3 views of the foot were acquired. COMPARISON: [facility], , FOOT 3V LEFT, 05/13/2011, 14:31. FINDINGS: Bones: No fractures or dislocations. No suspicious bony lesions. Tiny osseous navicularis Soft tissues: No tibiotalar joint effusion. Achilles tendon appears normal. IMPRESSION: No acute bony abnormality. Dictated by: Alvin Graham M.D. on 12/27/2023 at 14:50 Approved by: Alvin Graham M.D. on 12/27/2023 at 14:51
== END ==
PROVIDERS: Family Provider Family Medicine; PCP Family Medicine; Referring Provider Registered Nurse; Visit Provider Registered Nurse
DX: M79.672 Pain in left foot (principal)
CPT/HCPCS: 73630

== ENCOUNTER → 2023-12-29 11:20 | Outpatient (CLI) | payer MEDICARE, SELFPAY ==
[2023-12-29 12:45] LABS: Alanine Aminotransferase 214 IU/L (<50); Albumin 4.2 g/dL (3.5-5.0); Albumin Globulin Ratio 1.7 (1.0-2.8); Alkaline Phosphatase 72 U/L (38-126); Aspartate Aminotransferase 121 IU/L (17-59); Bilirubin Total 0.7 mg/dL (0.2-1.3); Bilirubin Unconjugated 0.3 mg/dL (0.0-1.1); Blood Urea Nitrogen 17 mg/dL (9-20); Calcium 8.9 mg/dL (8.4-10.2); Carbon Dioxide 30 mmol/L (22-32); Chloride 105 mmol/L (98-107); Estimated Glomerular Filt Rate > 60 mL/min (>60); Globulin 2.5 g/dL (1.7-4.1); Glucose 121 mg/dL (80-110); HEMOLYSIS < 15 (0-50); Potassium 4.4 mmol/L (3.4-5.1); Sodium 139 mmol/L (137-145); Total Protein 6.7 g/dL (6.3-8.2)
== END ==
PROVIDERS: Family Provider Family Medicine; PCP Family Medicine; Referring Provider Nurse Practitioner; Visit Provider Nurse Practitioner
DX: R74.01 Elevation of levels of liver transaminase levels (principal)
CPT/HCPCS: 36415; 80048; 80076

== ENCOUNTER 2024-01-23 10:30 | Outpatient (RCR) | payer MEDICARE, SELFPAY ==
--- NOTE | 2023-12-17 14:19 | PT.OIE ---
Current Diagnoses Pain in right shoulder (12/17/23) Low back pain, unspecified (12/17/23) Past Medical History (Last Updated 11/26/23 @ 20:39 by Princess Chua) Ataxia (~2014) Borderline hyperlipidemia Colorectal cancer Fecal incontinence (~2014) History of urinary incontinence (~2004) Macrocytic anemia Mitral valve prolapse Prostate cancer Scoliosis Shoulder pain Past Surgical History (Last Updated 11/26/23 @ 20:39 by Princess Chua) Anesthesia GIST (gastrointestinal stroma tumor), malignant, colon Visit Care Team Role Provider Type Leonel Pugh DO Attending Provider Physician Family Provider Primary Care Provider Referring Provider Specialty: [facility] Practice Address: [address] [place] [address], [facility] Email: [email or web address] Initial Evaluation PT-OP-A Visit Information Start: 12/17/23 07:59 Freq: Status: Active Protocol: Document 12/17/23 08:10 MB (Rec: 12/17/23 08:55 MB [id number]) Out-Patient Physical Therapy Visit Information Visit Information Visit Type Initial Evaluation Visit Note [employer] before KX Visit Start Time 08:15 Visit Stop Time 08:55 Visit Number 1 Number of [employer] [place] Visits 0 Evaluation Information Evaluation Date 12/17/23 Precautions Precautions Recent rectal CA surgery and needs to be near BR R shoulder has injuries per MRI in 2021 PT-OP-B Current Condition Start: 12/17/23 07:59 Freq: Status: Active Protocol: Document 12/17/23 08:10 MB (Rec: 12/17/23 08:55 MB [id number]) Current Condition History of Current Condition Onset Date 2 years ago Current Complaints Right shoulder pain and LBP. Pt also has ataxia and pelvic floor issues. History of Current Condition Pt is new to Dr. Pugh and his right shoulder is his major issue. Secondary is LBP that has been there forever. It is getting worse as he gets older. He had two right shoulder injuries in the past. He rows a lot and he is competitive. He is also a member of the gym. Two years ago, he lost his form with rowing on [employer]. He injured his shoulder and went to doctor and PT for a while. He got frustrated with length of time to heal and went back to training. The next year, he was on a dock, slipped and caught himself with his right arm out and he heard something in his shoulder and had pain again. He con't to lift lightly and run. He tried PT and again and stopped. He had two surgical consults and decided not to have surgery. He tried another explosive lift and he had worse right shoulder pain. He went back to PT exercises and felt better. Using seatbelt was painful. He has improved greatly since waiting to get into PT. His sharp distal shoulder pain is better. He is right-handed. He has been to three PT clinics in [place] in the past two years. Pt had second surgery for rectal CA on 2023. He is on a chemo drug. He used to maintain muscle mass and now he cannot. He has talked to work from home at [employer]. Pt is seeing Eldon Islas, PT , for manual work and he is difficult to get into to. Pt reports cerebellar issues, concussion, ataxia and pelvic issues as well. Pt reports one fall this year and 1 fall in 2022. Prior Treatments and Tests MRI right shoulder 03/13/22: IMPRESSION: 1. Moderate grade articular and bursal surface partial thickness tear involving distal supraspinatus extending to musculotendinous junction. Distal infraspinatus tendinosis. Low to moderate grade partial- thickness tear involving superior to mid fibers of distal subscapularis. No full- thickness rotator cuff tendon rupture. Mild to moderate supraspinatus muscle atrophy. 2. Moderate acromioclavicular joint osteoarthritis and mild- to-moderate glenohumeral joint osteoarthritis. Small to moderate amount of subacromial subdeltoid bursal fluid. No gross loose bodies. 3. Suggestion of anterior- inferior labral tear at 5 to 6 o'clock position. Possible very subtle superior anterior labral tear at 12 to 1 o'clock position. Treatment Goals Patient/Caregiver Goals To work on balance. PT-OP-C Subjective Start: 12/17/23 07:59 Freq: Status: Active Protocol: Document 12/17/23 08:10 MB (Rec: 12/17/23 08:55 MB [id number]) OP-PT Subjective Patient Comments Patient Comments See history of current condition. Patient Questionnaires Oswestry Low Back Index Oswestry Score 15/50 Oswestry Impairment 20 to 39% Impaired (Score 20- 39) PT-OP-J Posture/Palpation/Skin Start: 12/17/23 07:59 Freq: Status: Active Protocol: Document 12/17/23 08:10 MB (Rec: 12/17/23 14:19 MB [id number]) Posture Evaluation Comments Posture Comments Standing posture: head mildly SB to the right, cervical hypertrophy left suboccipital muscles, left shoulder higher and more forward than the right, right iliac crest higher than the left, kyphoscoliosis with convexity to the right, right foot with greater Donald angle than the left. Posture is flexed at hips such that whole cranium is anterior to left AC joint. Standing lumbar movement is limited with B SB only about 10 deg, pt bends knees for forward flexion and B thoracic rotation in sitting is limited with right rotation grossly 40% less than the left . When standing, pt reports cerebellar issue that affects his vision and balance and he states that he is on a medication for this. 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 PT-OP-K Range of Motion Start: 12/17/23 07:59 Freq: Status: Active Protocol: Document 12/17/23 08:10 MB (Rec: 12/17/23 14:19 MB [id number]) Shoulder Goniometric Range of Motion Shoulder Bilateral Testing Position Standing Flexion 140 Abduction 160 PT-OP-M Strength Start: 12/17/23 07:59 Freq: Status: Active Protocol: Document 12/17/23 08:10 MB (Rec: 12/17/23 14:19 MB [id number]) Shoulder Strength Shoulder Manual Muscle Testing Bilateral Flexion 4+ Good+ Abduction (C5) 4+ Good+ Elbow/Forearm Strength Elbow and Forearm Manual Muscle Testing Bilateral Flexion (C6) 5 Normal Extension (C7) 5 Normal Hip Strength Hip Manual Muscle Testing Bilateral Flexion (L2) 5 Normal Knee Strength Knee Manual Muscle Testing Bilateral Flexion (S2) 5 Normal Extension (L3) 5 Normal PT-OP-Q Treatments Start: 12/17/23 07:59 Freq: Status: Active Protocol: Document 12/17/23 08:10 MB (Rec: 12/17/23 14:19 MB [id number]) Self-Care/Home Management Treatment Education Patient Education Fall Risk,Pain Management, Safety Other Education PT ed pt that if he wishes to con't with Eldon Roshan for treatment of his right shoulder, that this PT can address posture, alignment, LB and balance and after much discussion, pt is agreeable to this. PT ed pt that this PT is not a pelvic insulation and flooring assembler and that he will need to have doctor to send over another order for pelvic floor rehab for another PT at this clinic in the future and pt verbalizes understanding. PT ed pt that success with PT this PT course will be largely related to compliance with recommendations and HEP and he is agreeable and PT and pt agree to set only a limited about of appointments to see how therapy works for him and his schedule. PT-OP-T Assessment and Plan Start: 12/17/23 07:59 Freq: Status: Active Protocol: Document 12/17/23 08:10 MB (Rec: 12/17/23 08:55 MB [id number]) Physical Therapy Assessment Rehab Potential Rehabilitation Potential Fair Evaluation Complexity Number of Personal Factors/Comorbidities 1-2 Number of Body Systems Impaired 3 Clinical Presentation at Evaluation Evolving Impairments Impairments Activity Tolerance,Balance, Functional Activities, Functional Mobility,Gait,Pain, Posture,ROM,Soft Tissue Mobility,Strength,Vestibular Goals 3 Impairment Lack of HEP for LB and balance Drop Wire Aligner Goal (LTG) Pt will perform progressive HEP with I including ROM, flexibility, strengthening and balance exercises to improve balance and pain. LTG Duration 8 weeks 2 Impairment Evidence of imbalance Assisted Goal (LTG) Pt will perform WNLs on a standardized balance test to decrease fall risk. LTG Duration 8 weeks 1 Impairment Oswestry score reflecting 30% impairment Assisted Goal (LTG) Pt will present with an improved Oswestry score to reflect no more than 20% impairment to improve quality of life and pain. LTG Duration 8 weeks Assessment Summary Assessment Pt is a 73 y/o male who arrives to PT assessment reporting a complex medical history, various concerns and a history of decreased compliance with physical therapy. Pt states that he has gone to three PT clinics in the area over the past two years for his right shoulder and he has gotten fed up several times with how slow his recovery is and he has gone back to heavier lifting and exercises that in turn exacerbate the problem again. He went to two surgeons and did not want to think about surgery d/t the recovery time post-op. Recently, he has not continued his typical behavior pattern and he feels better. He has a PT, Eldon Islas, who he sees out of pocket for manual work when he can get in with him and he would like to con't with that provider. Pt with recurrence of rectal cancer s/p surgery July 2023. He thought he was on the list to get pelvic floor PT at this clinic and he is interested in this. PT ed pt that this PT is not a pelvic insulation and flooring assembler and after speaking with front office, that this clinic does not currently have an order for pelvic floor PT. Encouraged him to follow up with Dr. Pugh or his oncologist in [place]. After much discussion , pt states that he would like to work on his LBP and balance with this PT and PT is in agreement. Pt presents with postural spinal changes, good strength and poor balance with gait and standing today on assessment. He will benefit from PT to improve pelvic alignment, flexibility and balance. History of getting fed up with PT/non-compliance may be a barrier to PT. This PT will defer right shoulder rehab to Eldon Islas. Pt has many changes in right shoulder per MRI in 2021. Physical Therapy Plan Frequency and Duration Frequency of Treatment 1-2x/wk Duration of treatment (weeks) 8 Plan of Care Start Date 12/17/23 Plan of Care End Date 02/16/24 Therapeutic Interventions Therapeutic Interventions Balance Training,Canalithic Repositioning,Home Exercise Program,Joint Mobilizations, Manual Therapy,Neuromuscular Re-education,Patient/Caregiver Education,Self-Care/Home Management,Soft Tissue Mobilization,Taping, Therapeutic Activities, Therapeutic Exercises Modalities Cold Pack/Ice Massage,Electric Stimulation,Hot Packs, Ultrasound Next Visit Focus/Plan Next Note Type Treatment Note Next Visit Plan Pelvic realignment exercises, balance test
--- NOTE | 2023-12-17 14:19 | PT.OPPOC ---
Physical, Occupational & Speech Therapy At [facility] Current Diagnoses Pain in right shoulder (12/17/23) Low back pain, unspecified (12/17/23) Visit Care Team Role Provider Type Leonel Puhg DO Attending Provider Physician Family Provider Primary Care Provider Referring Provider Specialty: [facility] Practice Address: [address] [place] [address], [facility] Email: [email or web address] Plan Of Care PT-OP-T Assessment and Plan Start: 12/17/23 07:59 Freq: Status: Active Protocol: Document 12/17/23 08:10 MB (Rec: 12/17/23 08:55 MB [id number]) Physical Therapy Assessment Rehab Potential Rehabilitation Potential Fair Evaluation Complexity Number of Personal Factors/Comorbidities 1-2 Number of Body Systems Impaired 3 Clinical Presentation at Evaluation Evolving Impairments Impairments Activity Tolerance,Balance, Functional Activities, Functional Mobility,Gait,Pain, Posture,ROM,Soft Tissue Mobility,Strength,Vestibular Goals 3 Impairment Lack of HEP for LB and balance Hospital Nurse Liaison Goal (LTG) Pt will perform progressive HEP with I including ROM, flexibility, strengthening and balance exercises to improve balance and pain. LTG Duration 8 weeks 2 Impairment Evidence of imbalance Residential Goal (LTG) Pt will perform WNLs on a standardized balance test to decrease fall risk. LTG Duration 8 weeks 1 Impairment Oswestry score reflecting 30% impairment Hospital Nurse Liaison Goal (LTG) Pt will present with an improved Oswestry score to reflect no more than 20% impairment to improve quality of life and pain. LTG Duration 8 weeks Assessment Summary Assessment Pt is a 73 y/o male who arrives to PT assessment reporting a complex medical history, various concerns and a history of decreased compliance with physical therapy. Pt states that he has gone to three PT clinics in the area over the past two years for his right shoulder and he has gotten fed up several times with how slow his recovery is and he has gone back to heavier lifting and exercises that in turn exacerbate the problem again. He went to two surgeons and did not want to think about surgery d/t the recovery time post-op. Recently, he has not continued his typical behavior pattern and he feels better. He has a PT, Eldon Islas, who he sees out of pocket for manual work when he can get in with him and he would like to con't with that provider. Pt with recurrence of rectal cancer s/p surgery July 2023. He thought he was on the list to get pelvic floor PT at this clinic and he is interested in this. PT ed pt that this PT is not a pelvic commercial floor covering installer and after speaking with front office, that this clinic does not currently have an order for pelvic floor PT. Encouraged him to follow up with Dr. Pugh or his oncologist in [place]. After much discussion , pt states that he would like to work on his LBP and balance with this PT and PT is in agreement. Pt presents with postural spinal changes, good strength and poor balance with gait and standing today on assessment. He will benefit from PT to improve pelvic alignment, flexibility and balance. History of getting fed up with PT/non-compliance may be a barrier to PT. This PT will defer right shoulder rehab to Eldon Islas. Pt has many changes in right shoulder per MRI in 2021. Physical Therapy Plan Frequency and Duration Frequency of Treatment 1-2x/wk Duration of treatment (weeks) 8 Plan of Care Start Date 12/17/23 Plan of Care End Date 02/16/24 Therapeutic Interventions Therapeutic Interventions Balance Training,Canalithic Repositioning,Home Exercise Program,Joint Mobilizations, Manual Therapy,Neuromuscular Re-education,Patient/Caregiver Education,Self-Care/Home Management,Soft Tissue Mobilization,Taping, Therapeutic Activities, Therapeutic Exercises Modalities Cold Pack/Ice Massage,Electric Stimulation,Hot Packs, Ultrasound Next Visit Focus/Plan Next Note Type Treatment Note Next Visit Plan Pelvic realignment exercises, balance test Plan of Care Dates Plan of Care Start Date 12/17/23 Plan of Care End Date 02/16/24 Electronically Signed by: Marylin Alcantara PT 12/17/23 0777 If you are in agreement with this Plan of Care, please return a signed and dated copy. I have reviewed this Plan of Care and certify that the skilled therapy services above are required to meet the patient?s needs. Physician Signature Date Printed Name and Credentials Clinical Instructor Signature Printed Name and Credentials
--- NOTE | 2023-12-29 08:58 | PT.OTN ---
Current Diagnoses Pain in right shoulder (12/29/23) Low back pain, unspecified (12/29/23) Dizziness and giddiness (12/29/23) Unspecified fall, sequela (12/29/23) Physical Therapy Treatment Note PT-OP-A Visit Information Start: 12/17/23 07:59 Freq: Status: Active Protocol: Document 12/29/23 08:17 MB (Rec: 12/29/23 08:58 MB [id number]) Out-Patient Physical Therapy Visit Information Visit Information Visit Type Treatment Note Visit Note [employer] Medicare before KX Visit Start Time 08:17 Visit Stop Time 08:57 Visit Number 2 Number of ASSEMBLER KNIFE Visits 0 Evaluation Information Evaluation Date 12/17/23 Precautions Precautions Recent rectal CA surgery and needs to be near BR R shoulder has injuries per MRI in 2021 PT-OP-B Current Condition Start: 12/17/23 07:59 Freq: Status: Active Protocol: Document 12/17/23 08:10 MB (Rec: 12/17/23 08:55 MB [id number]) Current Condition History of Current Condition Onset Date 2 years ago Current Complaints Right shoulder pain and LBP. Pt also has ataxia and pelvic floor issues. History of Current Condition Pt is new to Dr. Pugh and his right shoulder is his major issue. Secondary is LBP that has been there forever. It is getting worse as he gets older. He had two right shoulder injuries in the past. He rows a lot and he is competitive. He is also a member of the gym. Two years ago, he lost his form with rowing on [employer]. He injured his shoulder and went to doctor and PT for a while. He got frustrated with length of time to heal and went back to training. The next year, he was on a dock, slipped and caught himself with his right arm out and he heard something in his shoulder and had pain again. He con't to lift lightly and run. He tried PT and again and stopped. He had two surgical consults and decided not to have surgery. He tried another explosive lift and he had worse right shoulder pain. He went back to PT exercises and felt better. Using seatbelt was painful. He has improved greatly since waiting to get into PT. His sharp distal shoulder pain is better. He is right-handed. He has been to three PT clinics in [place] in the past two years. Pt had second surgery for rectal CA on 2023. He is on a chemo drug. He used to maintain muscle mass and now he cannot. He has talked to bilingual operator at [facility]. 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 Pt reports cerebellar issues, concussion, ataxia and pelvic issues as well. Pt reports one fall this year and 1 fall in 2022. Prior Treatments and Tests MRI right shoulder 03/13/22: IMPRESSION: 1. Moderate grade articular and bursal surface partial thickness tear involving distal supraspinatus extending to musculotendinous junction. Distal infraspinatus tendinosis. Low to moderate grade partial- thickness tear involving superior to mid fibers of distal subscapularis. No full- thickness rotator cuff tendon rupture. Mild to moderate supraspinatus muscle atrophy. 2. Moderate acromioclavicular joint osteoarthritis and mild- to-moderate glenohumeral joint osteoarthritis. Small to moderate amount of subacromial subdeltoid bursal fluid. No gross loose bodies. 3. Suggestion of anterior- inferior labral tear at 5 to 6 o'clock position. Possible very subtle superior anterior labral tear at 12 to 1 o'clock position. Treatment Goals Patient/Caregiver Goals To work on balance. PT-OP-C Subjective Start: 12/17/23 07:59 Freq: Status: Active Protocol: Document 12/29/23 08:17 MB (Rec: 12/29/23 08:58 MB [id number]) OP-PT Subjective Patient Comments Patient Comments Pt would like to rattle on about his shoulder. He states he has lost his exercises for his shoulder that he was given years ago. He con't to describe his right shoulder symptoms as he did on the eval with other complaints. PT-OP-J Posture/Palpation/Skin Start: 12/17/23 07:59 Freq: Status: Active Protocol: Document 12/17/23 08:10 MB (Rec: 12/17/23 14:19 MB [id number]) Posture Evaluation Comments Posture Comments Standing posture: head mildly SB to the right, cervical hypertrophy left suboccipital muscles, left shoulder higher and more forward than the right, right iliac crest higher than the left, kyphoscoliosis with convexity to the right, right foot with greater Donald angle than the left. Posture is flexed at hips such that whole cranium is anterior to left AC joint. Standing lumbar movement is limited with B SB only about 10 deg, pt bends knees for forward flexion and B thoracic rotation in sitting is limited with right rotation grossly 40% less than the left . When standing, pt reports cerebellar issue that affects his vision and balance and he states that he is on a medication for this. 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 PT-OP-K Range of Motion Start: 12/17/23 07:59 Freq: Status: Active Protocol: Document 12/17/23 08:10 MB (Rec: 12/17/23 14:19 MB [id number]) Shoulder Goniometric Range of Motion Shoulder Bilateral Testing Position Standing Flexion 140 Abduction 160 PT-OP-M Strength Start: 12/17/23 07:59 Freq: Status: Active Protocol: Document 12/17/23 08:10 MB (Rec: 12/17/23 14:19 MB [id number]) Shoulder Strength Shoulder Manual Muscle Testing Bilateral Flexion 4+ Good+ Abduction (C5) 4+ Good+ Elbow/Forearm Strength Elbow and Forearm Manual Muscle Testing Bilateral Flexion (C6) 5 Normal Extension (C7) 5 Normal Hip Strength Hip Manual Muscle Testing Bilateral Flexion (L2) 5 Normal Knee Strength Knee Manual Muscle Testing Bilateral Flexion (S2) 5 Normal Extension (L3) 5 Normal PT-OP-Q Treatments Start: 12/17/23 07:59 Freq: Status: Active Protocol: Document 12/29/23 08:17 MB (Rec: 12/29/23 08:58 MB [id number]) Therapeutic Exercises Supine Exercises Pect stretch Comments 2 reps, knees bent, 30 sec hold Shoulder flexion and abduction Reps/Minutes 10 reps Comments AROM each exercise, knees bent Pelvic realignment exercises Equipment Used Blue ball Reps/Minutes 5 reps, 3 sec hold all exercises Comments Feet together ball squeeze, knee opp ankle iso, thigh press down iso Neuro Re-Education Treatment Balance Activities FGA Comments Pt score is 20/30, indicating increased risk for falling. See treatment plan for next treatment for exercises to add to HEP PT-OP-T Assessment and Plan Start: 12/17/23 07:59 Freq: Status: Active Protocol: Document 12/29/23 08:17 MB (Rec: 12/29/23 08:58 MB [id number]) Physical Therapy Assessment Rehab Potential Rehabilitation Potential Fair Evaluation Complexity Number of Personal Factors/Comorbidities 1-2 Number of Body Systems Impaired 3 Clinical Presentation at Evaluation Evolving Impairments Impairments Activity Tolerance,Balance, Functional Activities, Functional Mobility,Gait,Pain, Posture,ROM,Soft Tissue Mobility,Strength,Vestibular Goals 3 Impairment Lack of HEP for LB and balance Snf Goal (LTG) Pt will perform progressive HEP with I including ROM, flexibility, strengthening and balance exercises to improve balance and pain. LTG Duration 8 weeks 2 Impairment Evidence of imbalance Director Of Loss Prevention Goal (LTG) Pt will perform WNLs on a standardized balance test to decrease fall risk. LTG Duration 8 weeks 1 Impairment Oswestry score reflecting 30% impairment Snf Goal (LTG) Pt will present with an improved Oswestry score to reflect no more than 20% impairment to improve quality of life and pain. LTG Duration 8 weeks Assessment Summary Assessment Pt arrives and wishes to talk about his right shoulder. PT reminds pt that most of evaluation was talking and trying to figure out what he wants to work on with this PT and he had decided to work with [facility] Islas with his shoulder and balance with this PT. Pt asks PT about shoulder exercises and PT once again reminds pt of plan and also that he stated he was not compliant with PT exercises in the past. Pt is a bit of a moving target and he states he is going to jog and golf in [place] and is not interested in swimming. Pt buy in and focus are challenges. Pt does describe episodic ataxia again today and he notes that caffeine and alcohol exacerbate it. Balance asessment today and initiated intervention. Con't PT efforts . Physical Therapy Plan Frequency and Duration Frequency of Treatment 1-2x/wk Duration of treatment (weeks) 8 Plan of Care Start Date 12/17/23 Plan of Care End Date 02/16/24 Therapeutic Interventions Therapeutic Interventions Balance Training,Canalithic Repositioning,Home Exercise Program,Joint Mobilizations, Manual Therapy,Neuromuscular Re-education,Patient/Caregiver Education,Self-Care/Home Management,Soft Tissue Mobilization,Taping, Therapeutic Activities, Therapeutic Exercises Modalities Cold Pack/Ice Massage,Electric Stimulation,Hot Packs, Ultrasound Next Visit Focus/Plan Next Note Type Treatment Note Next Visit Plan Balance exercises for home to be: gait with horizontal head turns, gait with narrow KRISTY, gait with EC and gait backwards Manual work and con't progressive postural, balance exercises
--- NOTE | 2023-12-30 08:58 | PT.OTN ---
Current Diagnoses Pain in right shoulder (12/30/23) Low back pain, unspecified (12/30/23) Dizziness and giddiness (12/30/23) Unspecified fall, sequela (12/30/23) Physical Therapy Treatment Note PT-OP-A Visit Information Start: 12/17/23 07:59 Freq: Status: Active Protocol: Document 12/30/23 08:16 MB (Rec: 12/30/23 08:58 MB [id number]) Out-Patient Physical Therapy Visit Information Visit Information Visit Type Treatment Note Visit Note [employer] Medicare before KX Visit Start Time 08:16 Visit Stop Time 08:56 Visit Number 3 Number of PERSONAL LINES SALES REP Visits 0 Evaluation Information Evaluation Date 12/17/23 Precautions Precautions Recent rectal CA surgery and needs to be near BR R shoulder has injuries per MRI in 2021 PT-OP-B Current Condition Start: 12/17/23 07:59 Freq: Status: Active Protocol: Document 12/17/23 08:10 MB (Rec: 12/17/23 08:55 MB [id number]) Current Condition History of Current Condition Onset Date 2 years ago Current Complaints Right shoulder pain and LBP. Pt also has ataxia and pelvic floor issues. History of Current Condition Pt is new to Dr. Pugh and his right shoulder is his major issue. Secondary is LBP that has been there forever. It is getting worse as he gets older. He had two right shoulder injuries in the past. He rows a lot and he is competitive. He is also a member of the gym. Two years ago, he lost his form with rowing on [employer]. He injured his shoulder and went to doctor and PT for a while. He got frustrated with length of time to heal and went back to training. The next year, he was on a dock, slipped and caught himself with his right arm out and he heard something in his shoulder and had pain again. He con't to lift lightly and run. He tried PT and again and stopped. He had two surgical consults and decided not to have surgery. He tried another explosive lift and he had worse right shoulder pain. He went back to PT exercises and felt better. Using seatbelt was painful. He has improved greatly since waiting to get into PT. His sharp distal shoulder pain is better. He is right-handed. He has been to three PT clinics in [place] in the past two years. Pt had second surgery for rectal CA on 2023. He is on a chemo drug. He used to maintain muscle mass and now he cannot. He has talked to passenger service supervisor at [facility]. 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 Pt reports cerebellar issues, concussion, ataxia and pelvic issues as well. Pt reports one fall this year and 1 fall in 2022. Prior Treatments and Tests MRI right shoulder 03/13/22: IMPRESSION: 1. Moderate grade articular and bursal surface partial thickness tear involving distal supraspinatus extending to musculotendinous junction. Distal infraspinatus tendinosis. Low to moderate grade partial- thickness tear involving superior to mid fibers of distal subscapularis. No full- thickness rotator cuff tendon rupture. Mild to moderate supraspinatus muscle atrophy. 2. Moderate acromioclavicular joint osteoarthritis and mild- to-moderate glenohumeral joint osteoarthritis. Small to moderate amount of subacromial subdeltoid bursal fluid. No gross loose bodies. 3. Suggestion of anterior- inferior labral tear at 5 to 6 o'clock position. Possible very subtle superior anterior labral tear at 12 to 1 o'clock position. Treatment Goals Patient/Caregiver Goals To work on balance. PT-OP-C Subjective Start: 12/17/23 07:59 Freq: Status: Active Protocol: Document 12/30/23 08:16 MB (Rec: 12/30/23 08:58 MB [id number]) OP-PT Subjective Patient Comments Patient Comments Pt is having a morning that is a little imbalanced. Pt had left foot MRI 12/27/23 that was negative. He reported swelling and reaction to statins. PT-OP-J Posture/Palpation/Skin Start: 12/17/23 07:59 Freq: Status: Active Protocol: Document 12/17/23 08:10 MB (Rec: 12/17/23 14:19 MB [id number]) Posture Evaluation Comments Posture Comments Standing posture: head mildly SB to the right, cervical hypertrophy left suboccipital muscles, left shoulder higher and more forward than the right, right iliac crest higher than the left, kyphoscoliosis with convexity to the right, right foot with greater Donald angle than the left. Posture is flexed at hips such that whole cranium is anterior to left AC joint. Standing lumbar movement is limited with B SB only about 10 deg, pt bends knees for forward flexion and B thoracic rotation in sitting is limited with right rotation grossly 40% less than the left . When standing, pt reports cerebellar issue that affects his vision and balance and he states that he is on a medication for this. 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 PT-OP-K Range of Motion Start: 12/17/23 07:59 Freq: Status: Active Protocol: Document 12/17/23 08:10 MB (Rec: 12/17/23 14:19 MB [id number]) Shoulder Goniometric Range of Motion Shoulder Bilateral Testing Position Standing Flexion 140 Abduction 160 PT-OP-M Strength Start: 12/17/23 07:59 Freq: Status: Active Protocol: Document 12/17/23 08:10 MB (Rec: 12/17/23 14:19 MB [id number]) Shoulder Strength Shoulder Manual Muscle Testing Bilateral Flexion 4+ Good+ Abduction (C5) 4+ Good+ Elbow/Forearm Strength Elbow and Forearm Manual Muscle Testing Bilateral Flexion (C6) 5 Normal Extension (C7) 5 Normal Hip Strength Hip Manual Muscle Testing Bilateral Flexion (L2) 5 Normal Knee Strength Knee Manual Muscle Testing Bilateral Flexion (S2) 5 Normal Extension (L3) 5 Normal PT-OP-Q Treatments Start: 12/17/23 07:59 Freq: Status: Active Protocol: Document 12/30/23 08:16 MB (Rec: 12/30/23 08:58 MB [id number]) Therapeutic Exercises Supine Exercises Pect stretch Comments 2 reps, knees bent, 30 sec hold Shoulder flexion and abduction Reps/Minutes 10 reps Comments AROM each exercise, knees bent Pelvic realignment exercises Equipment Used Blue ball Reps/Minutes 5 reps, 3 sec hold all exercises Comments Feet together ball squeeze, knee opp ankle iso, thigh press down iso Manual Therapy Treatment Other Other Manual Treatments Pt hook lying with head and legs supported: positional release thoracic spine, cervical PA mobs grade II-III, first rib mobs, SCM STM, MWM plantarflexors with PT performing TrP pressure and pt pumping foot up and down, increased work and time on positional release and STM right pect major and right infraspinatus, increased tension left plantar fascia. PT-OP-T Assessment and Plan Start: 12/17/23 07:59 Freq: Status: Active Protocol: Document 12/30/23 08:16 MB (Rec: 12/30/23 08:58 MB [id number]) Physical Therapy Assessment Rehab Potential Rehabilitation Potential Fair Evaluation Complexity Number of Personal Factors/Comorbidities 1-2 Number of Body Systems Impaired 3 Clinical Presentation at Evaluation Evolving Impairments Impairments Activity Tolerance,Balance, Functional Activities, Functional Mobility,Gait,Pain, Posture,ROM,Soft Tissue Mobility,Strength,Vestibular Goals 3 Impairment Lack of HEP for LB and balance Supervisor Personnel Clerks Goal (LTG) Pt will perform progressive HEP with I including ROM, flexibility, strengthening and balance exercises to improve balance and pain. LTG Duration 8 weeks 2 Impairment Evidence of imbalance Supervisor Personnel Clerks Goal (LTG) Pt will perform WNLs on a standardized balance test to decrease fall risk. LTG Duration 8 weeks 1 Impairment Oswestry score reflecting 30% impairment Supervisor Personnel Clerks Goal (LTG) Pt will present with an improved Oswestry score to reflect no more than 20% impairment to improve quality of life and pain. LTG Duration 8 weeks Assessment Summary Assessment Pt leaves for [place] for about a couple of weeks tomorrow. He will go with pelvic realignment exercises and gentle pect stretch and shoulder flexion. Many areas of tension today and fascial presentation is better after treatment. Physical Therapy Plan Frequency and Duration Frequency of Treatment 1-2x/wk Duration of treatment (weeks) 8 Plan of Care Start Date 12/17/23 Plan of Care End Date 02/16/24 Therapeutic Interventions Therapeutic Interventions Balance Training,Canalithic Repositioning,Home Exercise Program,Joint Mobilizations, Manual Therapy,Neuromuscular Re-education,Patient/Caregiver Education,Self-Care/Home Management,Soft Tissue Mobilization,Taping, Therapeutic Activities, Therapeutic Exercises Modalities Cold Pack/Ice Massage,Electric Stimulation,Hot Packs, Ultrasound Next Visit Focus/Plan Next Note Type Treatment Note Next Visit Plan Balance exercises for home to be: gait with horizontal head turns, gait with narrow Pt gone for [place] for 2 weeks and may need progress note resonably soon after return. KRISTY, gait with EC and gait backwards Manual work and con't progressive postural, balance exercises. Consider plantar fascia work/stretch for calves , check SLS
--- NOTE | 2024-01-19 12:24 | PT.OTN ---
Current Diagnoses Pain in right shoulder (01/19/24) Low back pain, unspecified (01/19/24) Dizziness and giddiness (01/19/24) Unspecified fall, sequela (01/19/24) Physical Therapy Treatment Note PT-OP-A Visit Information Start: 12/17/23 07:59 Freq: Status: Active Protocol: Document 01/19/24 09:03 MB (Rec: 01/19/24 09:41 MB [id number]) Out-Patient Physical Therapy Visit Information Visit Information Visit Type Progress Note Visit Note [employer] Medicare before KX Visit Start Time 09:03 Visit Stop Time 09:43 Visit Number 4 Number of BUSINESS CONTROLLER Visits 0 Evaluation Information Evaluation Date 12/17/23 Precautions Precautions Recent rectal CA surgery and needs to be near BR R shoulder has injuries per MRI in 2021 PT-OP-B Current Condition Start: 12/17/23 07:59 Freq: Status: Active Protocol: Document 12/17/23 08:10 MB (Rec: 12/17/23 08:55 MB [id number]) Current Condition History of Current Condition Onset Date 2 years ago Current Complaints Right shoulder pain and LBP. Pt also has ataxia and pelvic floor issues. History of Current Condition Pt is new to Dr. Pugh and his right shoulder is his major issue. Secondary is LBP that has been there forever. It is getting worse as he gets older. He had two right shoulder injuries in the past. He rows a lot and he is competitive. He is also a member of the gym. Two years ago, he lost his form with rowing on [employer]. He injured his shoulder and went to doctor and PT for a while. He got frustrated with length of time to heal and went back to training. The next year, he was on a dock, slipped and caught himself with his right arm out and he heard something in his shoulder and had pain again. He con't to lift lightly and run. He tried PT and again and stopped. He had two surgical consults and decided not to have surgery. He tried another explosive lift and he had worse right shoulder pain. He went back to PT exercises and felt better. Using seatbelt was painful. He has improved greatly since waiting to get into PT. His sharp distal shoulder pain is better. He is right-handed. He has been to three PT clinics in [place] in the past two years. Pt had second surgery for rectal CA on 2023. He is on a chemo drug. He used to maintain muscle mass and now he cannot. He has talked to personal banking representative at [facility]. 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 Pt reports cerebellar issues, concussion, ataxia and pelvic issues as well. Pt reports one fall this year and 1 fall in 2022. Prior Treatments and Tests MRI right shoulder 03/13/22: IMPRESSION: 1. Moderate grade articular and bursal surface partial thickness tear involving distal supraspinatus extending to musculotendinous junction. Distal infraspinatus tendinosis. Low to moderate grade partial- thickness tear involving superior to mid fibers of distal subscapularis. No full- thickness rotator cuff tendon rupture. Mild to moderate supraspinatus muscle atrophy. 2. Moderate acromioclavicular joint osteoarthritis and mild- to-moderate glenohumeral joint osteoarthritis. Small to moderate amount of subacromial subdeltoid bursal fluid. No gross loose bodies. 3. Suggestion of anterior- inferior labral tear at 5 to 6 o'clock position. Possible very subtle superior anterior labral tear at 12 to 1 o'clock position. Treatment Goals Patient/Caregiver Goals To work on balance. PT-OP-C Subjective Start: 12/17/23 07:59 Freq: Status: Active Protocol: Document 01/19/24 09:03 MB (Rec: 01/19/24 09:41 MB [id number]) OP-PT Subjective Patient Comments Patient Comments Pt states that he hurts today. His glutes hurt and he thinks that he has referred pain. He was inactive for a month after last cancer treatment and he thinks that the pain started then. It is the worse that it has ever been. He tried to play golf twice in [place] and he was unable to do it as far as putting joseph on the ground. He hasn't been walking because walking drives him crazy compared to running. He tried the gym and did light weights and slow a light rowing and felt better. This morning, he is back down to where back and hips are hurting. B hip aching and getting in and out of a chair hurts. Pt reports liver enzymes are dulce rocketing. PT-OP-J Posture/Palpation/Skin Start: 12/17/23 07:59 Freq: Status: Active Protocol: Document 12/17/23 08:10 MB (Rec: 12/17/23 14:19 MB [id number]) Posture Evaluation Comments Posture Comments Standing posture: head mildly SB to the right, cervical hypertrophy left suboccipital muscles, left shoulder higher and more forward than the right, right iliac crest higher than the left, kyphoscoliosis with convexity to the right, right foot with greater Donald angle than the left. Posture is flexed at hips such that whole cranium is anterior to left AC joint. Standing lumbar movement is limited with B SB only about 10 deg, pt bends knees for forward flexion and B thoracic rotation in sitting is limited with right rotation grossly 40% less than the left . When standing, pt reports cerebellar issue that affects his vision and balance and he states that he is on a medication for this. 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 PT-OP-K Range of Motion Start: 12/17/23 07:59 Freq: Status: Active Protocol: Document 12/17/23 08:10 MB (Rec: 12/17/23 14:19 MB [id number]) Shoulder Goniometric Range of Motion Shoulder Bilateral Testing Position Standing Flexion 140 Abduction 160 PT-OP-M Strength Start: 12/17/23 07:59 Freq: Status: Active Protocol: Document 12/17/23 08:10 MB (Rec: 12/17/23 14:19 MB [id number]) Shoulder Strength Shoulder Manual Muscle Testing Bilateral Flexion 4+ Good+ Abduction (C5) 4+ Good+ Elbow/Forearm Strength Elbow and Forearm Manual Muscle Testing Bilateral Flexion (C6) 5 Normal Extension (C7) 5 Normal Hip Strength Hip Manual Muscle Testing Bilateral Flexion (L2) 5 Normal Knee Strength Knee Manual Muscle Testing Bilateral Flexion (S2) 5 Normal Extension (L3) 5 Normal PT-OP-Q Treatments Start: 12/17/23 07:59 Freq: Status: Active Protocol: Document 01/19/24 09:03 MB (Rec: 01/19/24 12:23 MB [id number]) Therapeutic Exercises Supine Exercises Pect stretch Comments 1 rep, knees bent, 30 sec hold Shoulder flexion and abduction Reps/Minutes 5 reps Comments AROM each exercise, knees bent Pelvic realignment exercises Equipment Used Blue ball Reps/Minutes 5 reps, 3 sec hold all exercises Comments Feet together ball squeeze, knee opp ankle iso, thigh press down iso Neuro Re-Education Treatment Balance Activities FGA Comments Performed today and pt has much more challenge. See goal comments for details and score Self-Care/Home Management Treatment Education Patient Education Body Mechanics,Home Exercise Program,Pain Management Other Education Extensive education about findings today, benefits of keeping last three appointments knowing that if any positive pelvic MRI findings occur, will need to change plan. Ed pt on benefits of exercises and where PT might go from here, ed on considering what his goals are as far as how he can enjoy each day and consider walking rather than thinking so much about running, re-ed in exercises and provided more handouts PT-OP-T Assessment and Plan Start: 12/17/23 07:59 Freq: Status: Active Protocol: Document 01/19/24 09:03 MB (Rec: 01/19/24 09:41 MB [id number]) Physical Therapy Assessment Rehab Potential Rehabilitation Potential Fair Evaluation Complexity Number of Personal Factors/Comorbidities 1-2 Number of Body Systems Impaired 3 Clinical Presentation at Evaluation Evolving Impairments Impairments Activity Tolerance,Balance, Functional Activities, Functional Mobility,Gait,Pain, Posture,ROM,Soft Tissue Mobility,Strength,Vestibular Goals 3 Impairment Lack of HEP for LB and balance Prison Goal (LTG) Pt will perform progressive HEP with I including ROM, flexibility, strengthening and balance exercises to improve balance and pain. 01/19/24: Pt did not do exercises and does not have handouts from previous PT treatments. LTG Duration 8 weeks 2 Impairment Evidence of imbalance Blanket Washer Goal (LTG) Pt will perform WNLs on a standardized balance test to decrease fall risk. 01/19/24: FGA score is worse than when previously tested and is 14/30. Pt states that his imbalance was worse this morning. He has the ataxia history and has a medication from neuro opthalamologist today. LTG Duration 8 weeks 1 Impairment Oswestry score reflecting 30% impairment Prison Goal (LTG) Pt will present with an improved Oswestry score to reflect no more than 20% impairment to improve quality of life and pain. 01/19/24: Oswestry score is worse than assessment date and reflects 40% impairment. This may be d/t not performing HEP , liver issues, pt con't with provocative activities like golfing, etc LTG Duration 8 weeks Assessment Summary Assessment Pt may have visceral components of pain as far as liver enzymes and pelvic floor issues after cancer. Pt with worse Oswestry LBP score compared to the evaluation. Pt is con't to do things that provoke pain such as trying to golf. He has pelvic MRI in week to 10 days and so will await results. He sees Mr. Islas PT in the next couple of weeks and he will work on his right shoulder. Pt's FGA score is also worse today and pt reports that his imbalance was worse this morning. Unsure if pt is having a change in medical status as far as liver enzymes in setting of history of cancer. He con't with complaints of bowel issues. Pt has three more scheduled appointments. He promises to be more compliant with HEP. Will keep the three appointments to see if he can progress with gentle HEP. Also asked pt to bring in any updates of any testing or other doctor consults. Overall , pt's presentation is multifactorial as far as pelvic floor and bowel issues after cancer and chemo, liver enzyme changes and history central condition that causes ataxia and imbalance. Pt has not been compliant with PT plan and HEP in the past and this has been a barrier. Pt has started to build a good rapport with this PT and so PT would like to con't with current three scheduled visits to allow him consistency of care and change for progress with HEP for LB and balance. Physical Therapy Plan Frequency and Duration Frequency of Treatment 1-2x/wk Duration of treatment (weeks) 8 Plan of Care Start Date 12/17/23 Plan of Care End Date 02/16/24 Therapeutic Interventions Therapeutic Interventions Balance Training,Canalithic Repositioning,Home Exercise Program,Joint Mobilizations, Manual Therapy,Neuromuscular Re-education,Patient/Caregiver Education,Self-Care/Home Management,Soft Tissue Mobilization,Taping, Therapeutic Activities, Therapeutic Exercises Modalities Cold Pack/Ice Massage,Electric Stimulation,Hot Packs, Ultrasound Next Visit Focus/Plan Next Note Type Treatment Note Next Visit Plan Consider pelvic pain exercise progression Balance exercises for home to be: gait with horizontal head turns, gait with narrow KRISTY, gait with EC and gait backwards Manual work and con't progressive postural, balance exercises. Consider plantar fascia work/stretch for calves , check SLS
--- NOTE | 2024-01-23 11:15 | PT.OTN ---
Current Diagnoses Pain in right shoulder (01/23/24) Low back pain, unspecified (01/23/24) Dizziness and giddiness (01/23/24) Unspecified fall, sequela (01/23/24) Physical Therapy Treatment Note PT-OP-A Visit Information Start: 12/17/23 07:59 Freq: Status: Active Protocol: Document 01/23/24 10:32 SP (Rec: 01/23/24 11:46 SP [id number]) Out-Patient Physical Therapy Visit Information Visit Information Visit Type Treatment Note Visit Note [employer] Medicare before KX Visit Start Time 10:32 Visit Stop Time 11:15 Visit Number 5 Number of ORAL HEALTH THERAPIST Visits 1 Evaluation Information Evaluation Date 12/17/23 Precautions Precautions Recent rectal CA surgery and needs to be near BR R shoulder has injuries per MRI in 2021 PT-OP-B Current Condition Start: 12/17/23 07:59 Freq: Status: Active Protocol: Document 12/17/23 08:10 MB (Rec: 12/17/23 08:55 MB [id number]) Current Condition History of Current Condition Onset Date 2 years ago Current Complaints Right shoulder pain and LBP. Pt also has ataxia and pelvic floor issues. History of Current Condition Pt is new to Dr. Pugh and his right shoulder is his major issue. Secondary is LBP that has been there forever. It is getting worse as he gets older. He had two right shoulder injuries in the past. He rows a lot and he is competitive. He is also a member of the gym. Two years ago, he lost his form with rowing on [employer]. He injured his shoulder and went to doctor and PT for a while. He got frustrated with length of time to heal and went back to training. The next year, he was on a dock, slipped and caught himself with his right arm out and he heard something in his shoulder and had pain again. He con't to lift lightly and run. He tried PT and again and stopped. He had two surgical consults and decided not to have surgery. He tried another explosive lift and he had worse right shoulder pain. He went back to PT exercises and felt better. Using seatbelt was painful. He has improved greatly since waiting to get into PT. His sharp distal shoulder pain is better. He is right-handed. He has been to three PT clinics in [place] in the past two years. Pt had second surgery for rectal CA on 2023. He is on a chemo drug. He used to maintain muscle mass and now he cannot. He has talked to home child care provider at [facility]. 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 Pt reports cerebellar issues, concussion, ataxia and pelvic issues as well. Pt reports one fall this year and 1 fall in 2022. Prior Treatments and Tests MRI right shoulder 03/13/22: IMPRESSION: 1. Moderate grade articular and bursal surface partial thickness tear involving distal supraspinatus extending to musculotendinous junction. Distal infraspinatus tendinosis. Low to moderate grade partial- thickness tear involving superior to mid fibers of distal subscapularis. No full- thickness rotator cuff tendon rupture. Mild to moderate supraspinatus muscle atrophy. 2. Moderate acromioclavicular joint osteoarthritis and mild- to-moderate glenohumeral joint osteoarthritis. Small to moderate amount of subacromial subdeltoid bursal fluid. No gross loose bodies. 3. Suggestion of anterior- inferior labral tear at 5 to 6 o'clock position. Possible very subtle superior anterior labral tear at 12 to 1 o'clock position. Treatment Goals Patient/Caregiver Goals To work on balance. PT-OP-C Subjective Start: 12/17/23 07:59 Freq: Status: Active Protocol: Document 01/23/24 10:32 SP (Rec: 01/23/24 11:46 SP [id number]) OP-PT Subjective Patient Comments Patient Comments Pt reports not as diligent with pelvic realignment ex, have done them. PT-OP-J Posture/Palpation/Skin Start: 12/17/23 07:59 Freq: Status: Active Protocol: Document 12/17/23 08:10 MB (Rec: 12/17/23 14:19 MB [id number]) Posture Evaluation Comments Posture Comments Standing posture: head mildly SB to the right, cervical hypertrophy left suboccipital muscles, left shoulder higher and more forward than the right, right iliac crest higher than the left, kyphoscoliosis with convexity to the right, right foot with greater Donald angle than the left. Posture is flexed at hips such that whole cranium is anterior to left AC joint. Standing lumbar movement is limited with B SB only about 10 deg, pt bends knees for forward flexion and B thoracic rotation in sitting is limited with right rotation grossly 40% less than the left . When standing, pt reports cerebellar issue that affects his vision and balance and he states that he is on a medication for this. 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 PT-OP-K Range of Motion Start: 12/17/23 07:59 Freq: Status: Active Protocol: Document 12/17/23 08:10 MB (Rec: 12/17/23 14:19 MB [id number]) Shoulder Goniometric Range of Motion Shoulder Bilateral Testing Position Standing Flexion 140 Abduction 160 PT-OP-M Strength Start: 12/17/23 07:59 Freq: Status: Active Protocol: Document 12/17/23 08:10 MB (Rec: 12/17/23 14:19 MB [id number]) Shoulder Strength Shoulder Manual Muscle Testing Bilateral Flexion 4+ Good+ Abduction (C5) 4+ Good+ Elbow/Forearm Strength Elbow and Forearm Manual Muscle Testing Bilateral Flexion (C6) 5 Normal Extension (C7) 5 Normal Hip Strength Hip Manual Muscle Testing Bilateral Flexion (L2) 5 Normal Knee Strength Knee Manual Muscle Testing Bilateral Flexion (S2) 5 Normal Extension (L3) 5 Normal PT-OP-Q Treatments Start: 12/17/23 07:59 Freq: Status: Active Protocol: Document 01/23/24 10:32 SP (Rec: 01/23/24 11:46 SP [id number]) Therapeutic Exercises Supine Exercises Pelvic realignment exercises Supine Exercise Name ed 50% effort not 80% due to overrecruit LB Equipment Used AgraQuestble ball Reps/Minutes 5 reps, 3 sec hold all exercises Comments Feet together ball squeeze, knee opp ankle iso, thigh press down iso Other Exercises Pelvic/Back Pain Progression Other Exercise Name packet (from PT binder) Side bilateral Resistance 1, 3, 4, 5, 6, 7, 8, 9, 11, 12 Reps/Minutes 1 rep in PT (/c holds- most 30 sec, but as indicated) Comments ed pnfree range PT-OP-T Assessment and Plan Start: 12/17/23 07:59 Freq: Status: Active Protocol: Document 01/23/24 10:32 SP (Rec: 01/23/24 11:46 SP [id number]) Physical Therapy Assessment Goals 3 Impairment Lack of HEP for LB and balance Lab Tester Goal (LTG) Pt will perform progressive HEP with I including ROM, flexibility, strengthening and balance exercises to improve balance and pain. 01/19/24: Pt did not do exercises and does not have handouts from previous PT treatments. 01/23/24: Provided progressed pelvic&back pain HOs #s1-11, pnfree. LTG Duration 8 weeks progressed 01/23/24 2 Impairment Evidence of imbalance Care Home Goal (LTG) Pt will perform WNLs on a standardized balance test to decrease fall risk. 01/19/24: FGA score is worse than when previously tested and is 14/30. Pt states that his imbalance was worse this morning. He has the ataxia history and has a medication from neuro opthalamologist today. LTG Duration 8 weeks 1 Impairment Oswestry score reflecting 30% impairment Lab Tester Goal (LTG) Pt will present with an improved Oswestry score to reflect no more than 20% impairment to improve quality of life and pain. 01/19/24: Oswestry score is worse than assessment date and reflects 40% impairment. This may be d/t not performing HEP , liver issues, pt con't with provocative activities like golfing, etc LTG Duration 8 weeks Assessment Summary Assessment Pt good recall to pelvic realignment ex inconsistant with home performance reported . Improved diaphramatic breath with education/performance with assist pain reduction. Good response of less back discomfort and significant errect posture end tx vs arrival and reports feels difference, provided HOs for home carryover progressed pelvic and back pain handout packet #1-11. Discussed 2 reps each but intx had time for 1 rep. R>L tightness piriformis, hip flexor and adductor. Noted adductor stretch pnfree uncontrolled sways improved just static stretch 2nd rep, ed TA draw in /c LS toward table (no LB arch). Pt verbalized understanding gentle stretch/pressure during ex's not push into pain. Physical Therapy Plan Frequency and Duration Frequency of Treatment 1-2x/wk Duration of treatment (weeks) 8 Plan of Care Start Date 12/17/23 Plan of Care End Date 02/16/24 Therapeutic Interventions Therapeutic Interventions Balance Training,Canalithic Repositioning,Home Exercise Program,Joint Mobilizations, Manual Therapy,Neuromuscular Re-education,Patient/Caregiver Education,Self-Care/Home Management,Soft Tissue Mobilization,Taping, Therapeutic Activities, Therapeutic Exercises Modalities Cold Pack/Ice Massage,Electric Stimulation,Hot Packs, Ultrasound Next Visit Focus/Plan Next Note Type Treatment Note Next Visit Plan Next tx: check response to initiated pelvic pain exercise progression packet 1-11 last tx. Future PT suggested: Balance exercises for home to be: gait with horizontal head turns, gait with narrow KRISTY, gait with EC and gait backwards Manual work and con't progressive postural, balance exercises. Consider plantar fascia work/stretch for calves , check SLS
--- NOTE | 2024-02-01 09:37 | PT.OPDS ---
Current Diagnoses Pain in right shoulder (01/23/24) Low back pain, unspecified (01/23/24) Dizziness and giddiness (01/23/24) Unspecified fall, sequela (01/23/24) Visit Care Team Role Provider Type Leonel Pugh DO Attending Provider Physician Family Provider Primary Care Provider Referring Provider Specialty: Family Practice Address: [address] [place] [address], [facility] Email: [email or web address] Visit Number Visit Number 5 Discharge Summary PT-OP-B Current Condition Start: 12/17/23 07:59 Freq: Status: Active Protocol: Document 12/17/23 08:10 MB (Rec: 12/17/23 08:55 MB [id number]) Current Condition History of Current Condition Onset Date 2 years ago Current Complaints Right shoulder pain and LBP. Pt also has ataxia and pelvic floor issues. History of Current Condition Pt is new to Dr. Pugh and his right shoulder is his major issue. Secondary is LBP that has been there forever. It is getting worse as he gets older. He had two right shoulder injuries in the past. He rows a lot and he is competitive. He is also a member of the gym. Two years ago, he lost his form with rowing on [employer]. He injured his shoulder and went to doctor and PT for a while. He got frustrated with length of time to heal and went back to training. The next year, he was on a dock, slipped and caught himself with his right arm out and he heard something in his shoulder and had pain again. He con't to lift lightly and run. He tried PT and again and stopped. He had two surgical consults and decided not to have surgery. He tried another explosive lift and he had worse right shoulder pain. He went back to PT exercises and felt better. Using seatbelt was painful. He has improved greatly since waiting to get into PT. His sharp distal shoulder pain is better. He is right-handed. He has been to three PT clinics in [place] in the past two years. Pt had second surgery for rectal CA on 2023. He is on a chemo drug. He used to maintain muscle mass and now he cannot. 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 Pt reports cerebellar issues, concussion, ataxia and pelvic issues as well. Pt reports one fall this year and 1 fall in 2022. Prior Treatments and Tests MRI right shoulder 03/13/22: IMPRESSION: 1. Moderate grade articular and bursal surface partial thickness tear involving distal supraspinatus extending to musculotendinous junction. Distal infraspinatus tendinosis. Low to moderate grade partial- thickness tear involving superior to mid fibers of distal subscapularis. No full- thickness rotator cuff tendon rupture. Mild to moderate supraspinatus muscle atrophy. 2. Moderate acromioclavicular joint osteoarthritis and mild- to-moderate glenohumeral joint osteoarthritis. Small to moderate amount of subacromial subdeltoid bursal fluid. No gross loose bodies. 3. Suggestion of anterior- inferior labral tear at 5 to 6 o'clock position. Possible very subtle superior anterior labral tear at 12 to 1 o'clock position. Treatment Goals Patient/Caregiver Goals To work on balance. PT-OP-C Subjective Start: 12/17/23 07:59 Freq: Status: Active Protocol: Document 01/23/24 10:32 SP (Rec: 01/23/24 11:46 SP [id number]) OP-PT Subjective Patient Comments Patient Comments Pt reports not as diligent with pelvic realignment ex, have done them. PT-OP-J Posture/Palpation/Skin Start: 12/17/23 07:59 Freq: Status: Active Protocol: Document 12/17/23 08:10 MB (Rec: 12/17/23 14:19 MB [id number]) Posture Evaluation Comments Posture Comments Standing posture: head mildly SB to the right, cervical hypertrophy left suboccipital muscles, left shoulder higher and more forward than the right, right iliac crest higher than the left, kyphoscoliosis with convexity to the right, right foot with greater Donald angle than the left. Posture is flexed at hips such that whole cranium is anterior to left AC joint. Standing lumbar movement is limited with B SB only about 10 deg, pt bends knees for forward flexion and B thoracic rotation in sitting is limited with right rotation grossly 40% less than the left . When standing, pt reports cerebellar issue that affects his vision and balance and he states that he is on a medication for this. 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 PT-OP-K Range of Motion Start: 12/17/23 07:59 Freq: Status: Active Protocol: Document 12/17/23 08:10 MB (Rec: 12/17/23 14:19 MB [id number]) Shoulder Goniometric Range of Motion Shoulder Bilateral Testing Position Standing Flexion 140 Abduction 160 PT-OP-M Strength Start: 12/17/23 07:59 Freq: Status: Active Protocol: Document 12/17/23 08:10 MB (Rec: 12/17/23 14:19 MB [id number]) Shoulder Strength Shoulder Manual Muscle Testing Bilateral Flexion 4+ Good+ Abduction (C5) 4+ Good+ Elbow/Forearm Strength Elbow and Forearm Manual Muscle Testing Bilateral Flexion (C6) 5 Normal Extension (C7) 5 Normal Hip Strength Hip Manual Muscle Testing Bilateral Flexion (L2) 5 Normal Knee Strength Knee Manual Muscle Testing Bilateral Flexion (S2) 5 Normal Extension (L3) 5 Normal PT-OP-T Assessment and Plan Start: 12/17/23 07:59 Freq: Status: Active Protocol: Document 02/01/24 09:34 MB (Rec: 02/01/24 09:36 MB [id number]) Physical Therapy Assessment Assessment Summary Assessment PT arrived back to work after being out d/t illness. Pt's appointments were canceled and PT calls pt who con't to report increased liver enzymes . Pt is having conflicts with MRI scheduling. Will d/c PT.
== END 2024-02-03 13:50 | disposition home or self-care (01) ==
LOC: PHYS 10:30
PROVIDERS: Family Provider Family Medicine; PCP Family Medicine; Referring Provider Family Medicine; Visit Provider Family Medicine
DX: R42 Dizziness and giddiness (principal); M25.511 Pain in right shoulder; M54.50 Low back pain, unspecified; W19.XXXS Unspecified fall, sequela
CPT/HCPCS: 97110; 97112; 97140; 97161; 97535

== ENCOUNTER → 2024-01-28 09:03 | Outpatient (CLI) | payer MEDICARE, SELFPAY ==
[2024-01-28 10:07] LABS: Add Manual Diff / Slide Review NO; Basophils Absolute Auto 0 /uL (0-100); Basophils Percent Auto 0.5 % (0-2); Eosinophils Absolute Auto 200 /uL (0-450); Eosinophils Percent Auto 3.5 % (2-4); Hematocrit 44.2 % (41-53); Hemoglobin 14.9 g/dL (13.5-17.5); Lymphocytes Absolute Auto 1100 /uL (1100-4500); Lymphocytes Percent Auto 19.3 % (25-40); Mean Corpuscular HGB Conc 33.8 % (30-36); Mean Corpuscular Hemoglobin 34.4 PG (26-34); Mean Corpuscular Volume 101.8 fL (80-100); Monocytes Absolute Auto 800 /uL (0-900); Monocytes Percent Auto 14.7 % (3-14); Neutrophils Absolute Auto 3500 /uL (1500-7000); Platelet Count 228 X10^3/uL (150-400); Red Blood Cell Count 4.34 X10^6/uL (4.5-5.9); Red Cell Distribution Width 12.5 % (11.6-14.8); White Blood Cell Count 5.7 X10^3/uL (4.5-11.0)
[2024-01-28 10:28] LABS: Alanine Aminotransferase 529 IU/L (<50); Albumin Globulin Ratio 1.8 (1.0-2.8); Alkaline Phosphatase 81 U/L (38-126); Aspartate Aminotransferase 373 IU/L (17-59); BUN Creatinine Ratio 21.4 (6-22); Bilirubin Total 0.8 mg/dL (0.2-1.3); Blood Urea Nitrogen 15 mg/dL (9-20); Carbon Dioxide 31 mmol/L (22-32); Chloride 102 mmol/L (98-107); Estimated Glomerular Filt Rate > 60 mL/min (>60); Globulin 2.2 g/dL (1.7-4.1); Glucose 92 mg/dL (80-110); HEMOLYSIS < 15 (0-50); Phosphorous 3.5 mg/dL (2.3-3.7); Potassium 4.8 mmol/L (3.4-5.1); Sodium 138 mmol/L (137-145); Total Protein 6.2 g/dL (6.3-8.2)
[2024-01-28 10:59] LABS: Thyroid Stimulating Hormone 2.45 uIU/mL (0.47-4.68)
== END ==
LOC: LAB 09:06
PROVIDERS: Family Provider Family Medicine; PCP Family Medicine; Referring Provider Physician Assistant; Visit Provider Physician Assistant
DX: C49.A4 Gastrointestinal stromal tumor of large intestine (principal)
CPT/HCPCS: 36415; 80053; 84100; 84443; 85025

== ENCOUNTER → 2024-01-30 07:05 | Outpatient (CLI) | payer MEDICARE, SELFPAY ==
[2024-01-30 09:30] LABS: Hep C Virus Ab w/Reflex Quant NEGATIVE s/c (NEGATIVE); Hepatitis B Surface Antigen NEGATIVE s/c (NEGATIVE)
== END ==
PROVIDERS: Family Provider Family Medicine; PCP Family Medicine; Referring Provider Physician Assistant; Visit Provider Physician Assistant
DX: C49.A4 Gastrointestinal stromal tumor of large intestine (principal)
CPT/HCPCS: 36415; 86705; 86706; 86709; 86803; 87340

== ENCOUNTER 2024-02-06 11:55 | Emergency (ER) | payer MEDICARE, SELFPAY ==
[2024-02-06] VITALS (8 sets, daily range): BP systolic 118–163; BP diastolic 74–107; PULSE 63–66; RESP 16–98; TEMP 36.6–36.8; O2SAT 95–98
[2024-02-06 13:48] LABS: Add Manual Diff / Slide Review NO; Basophils Absolute Auto 0 /uL (0-100); Basophils Percent Auto 0.5 % (0-2); Eosinophils Absolute Auto 200 /uL (0-450); Eosinophils Percent Auto 2.5 % (2-4); Hemoglobin 14.7 g/dL (13.5-17.5); Lymphocytes Absolute Auto 1300 /uL (1100-4500); Lymphocytes Percent Auto 18.7 % (25-40); Mean Corpuscular HGB Conc 34.3 % (30-36); Mean Corpuscular Hemoglobin 34.5 PG (26-34); Mean Corpuscular Volume 100.6 fL (80-100); Monocytes Absolute Auto 700 /uL (0-900); Monocytes Percent Auto 10.8 % (3-14); Neutrophils Absolute Auto 4500 /uL (1500-7000); Neutrophils Percent Auto 67.5 % (50-75); Platelet Count 260 X10^3/uL (150-400); Red Blood Cell Count 4.28 X10^6/uL (4.5-5.9); Red Cell Distribution Width 12.5 % (11.6-14.8); White Blood Cell Count 6.7 X10^3/uL (4.5-11.0)
[2024-02-06 13:57] LABS: INR 1.1 (0.9-1.3); Prothrombin Time 12.5 SECONDS (9.4-12.5)
[2024-02-06 13:59] LABS: Alanine Aminotransferase 533 IU/L (<50); Albumin 3.9 g/dL (3.5-5.0); Albumin Globulin Ratio 1.4 (1.0-2.8); Alkaline Phosphatase 89 U/L (38-126); Aspartate Aminotransferase 349 IU/L (17-59); BUN Creatinine Ratio 23.9 (6-22); Bilirubin Total 0.8 mg/dL (0.2-1.3); Blood Urea Nitrogen 17 mg/dL (9-20); Carbon Dioxide 32 mmol/L (22-32); Chloride 104 mmol/L (98-107); Estimated Glomerular Filt Rate > 60 mL/min (>60); Globulin 2.8 g/dL (1.7-4.1); Glucose 88 mg/dL (80-110); HEMOLYSIS 24 (0-50); Lipase 47 U/L (23-300); PTT Partial Thromboplastin Tim 35 SECONDS (25.1-36.5); Potassium 4.2 mmol/L (3.4-5.1); Sodium 139 mmol/L (137-145); Total Protein 6.7 g/dL (6.3-8.2)
--- NOTE | 2024-02-06 15:55 | ED_ITS ---
HPI - Recheck/Abnormal Lab/Rx General Chief Complaint: Recheck/Abnormal Lab/Rx Stated Complaint: evaluation, sent by Dr. Patino from [facility] Time Seen by Provider: 02/06/24 15:54 Source: patient Mode of arrival: Ambulatory History of Present Illness HPI narrative: Patient is 73-year-old male history of GIST tumor followed by [facility]. He was sent here by them for repeat blood work. Apparently he is liver enzymes are rising but he is completely asymptomatic. He denies any sort of abdominal pain nausea vomiting or increasing weakness. He does have falls but he has a history of ataxia it is not new he has not fallen recently no injury Related Data Home Medications Medication Instructions Recorded Confirmed acetazolamide 250 mg tablet 125 mg PO BID 04/06/19 02/06/24 Aminopyridine PO 10/24/23 02/06/24 Previous Rx's Medication Instructions Recorded dalfampridine 10 mg 20 mg (2 x 10 mg) PO Q12H #90 tabs 11/13/23 tablet,extended release,12 hr imatinib 400 mg tablet 400 mg PO DAILY #90 tabs 11/13/23 ezetimibe 10 mg tablet 10 mg PO DAILY cholesterol #90 tabs 12/02/23 Allergies Allergy/AdvReac Type Severity Reaction Status Date / Time naproxen [From Aleve] AdvReac Unknown Verified 02/06/24 12:40 Patient History Medical History Ataxia (~2014) Shoulder pain Scoliosis History of urinary incontinence (~2004) Fecal incontinence (~2014) Prostate cancer Colorectal cancer Borderline hyperlipidemia Macrocytic anemia Mitral valve prolapse Surgical History Anesthesia GIST (gastrointestinal stroma tumor), malignant, colon Family History Father Stroke Social History household members: spouse Smoking Status: Never smoker Smoking Status: Never smoker Substance Use Type: does not use Exam Initial Vital Signs Initial Vital Signs: Vital Signs Temperature 98.2 F 02/06/24 13:50 Pulse Rate 66 02/06/24 13:50 Respiratory Rate 98 H 02/06/24 13:50 Blood Pressure 118/77 02/06/24 13:50 Pulse Oximetry 97 02/06/24 13:50 Oxygen Delivery Method Room Air 02/06/24 13:50 GENERAL: Alert pleasant 73-year-old male HEENT: Head atraumatic,EOMI, pupils reactive, face symmetric, moist mucous membranes CARDIOVASCULAR: Regular rate and rhythm without murmurs, rubs or gallops. RESPIRATORY: Breath sounds equal bilaterally, no wheezes rales or rhonchi. ABDOMEN: Soft, nontender. Normoactive bowel sounds all 4 quadrants. No guarding or rebound. No hepatomegaly no splenomegaly EXTREMITIES: Normal range of motion, no clubbing or edema. Neurovascularly intact NEUROLOGICAL: Alert and oriented x4. SKIN: Warm, dry, no laceration, no petechiae, no rashes or lesions. Course Orders Ordered: ED Orders 02/06/24 13:39 CBC Auto Diff [Complete Blood Count AUTO DIFF] Stat CMP [Comprehensive Metabolic Panel] Stat Lipase Stat PT [Prothrombin Time INR] Stat PTT Partial Thromboplastin Enrike Stat Vital Signs Vital signs: Vital Signs - 8 hr 02/06/24 13:50 02/06/24 14:01 02/06/24 14:02 Temperature 98.2 F Pulse Rate 66 Respiratory Rate 98 H Blood Pressure 118/77 163/86 H Pulse Oximetry 97 95 Oxygen Delivery Method Room Air 02/06/24 14:02 02/06/24 14:30 02/06/24 15:00 Temperature Pulse Rate 63 64 Respiratory Rate Blood Pressure 151/74 H Pulse Oximetry 98 95 Oxygen Delivery Method 02/06/24 15:30 02/06/24 15:52 02/06/24 15:53 Temperature 97.8 F Pulse Rate 63 63 Respiratory Rate 16 Blood Pressure 154/107 H 145/78 H 143/81 H Pulse Oximetry 97 98 Oxygen Delivery Method Room Air MDM - Recheck/Abnormal Lab/Rx Lab Data 02/06/24 13:39 02/06/24 13:39 Labs: Lab Results 02/06/24 Range/Units 13:39 WBC 6.7 (4.5-11.0) X10^3/uL RBC 4.28 L (4.5-5.9) X10^6/uL Hgb 14.7 (13.5-17.5) g/dL Hct 43.0 (41-53) % MCV 100.6 H (80-100) fL MCH 34.5 H (26-34) PG MCHC 34.3 (30-36) % RDW 12.5 (11.6-14.8) % Plt Count 260 (150-400) X10^3/uL Neut % (Auto) 67.5 (50-75) % Lymph % (Auto) 18.7 L (25-40) % Mcleod % (Auto) 10.8 (3-14) % Eos % (Auto) 2.5 (2-4) % Baso % (Auto) 0.5 (0-2) % Neut # (Auto) 4500 (2711-8049) /uL Lymph # (Auto) 1300 (0634-8336) /uL Mcleod # (Auto) 700 (0-900) /uL Eos # (Auto) 200 (0-450) /uL Baso # (Auto) 0 (0-100) /uL PT 12.5 (9.4-12.5) SECONDS INR 1.1 (0.9-1.3) APTT 35 (25.1-36.5) SECONDS Sodium 139 (137-145) mmol/L Potassium 4.2 (3.4-5.1) mmol/L Chloride 104 (98-107) mmol/L Carbon Dioxide 32 (22-32) mmol/L BUN 17 (9-20) mg/dL Creatinine 0.71 (0.66-1.25) mg/dL Estimated GFR > 60 (>60) mL/min BUN/Creatinine Ratio 23.9 H (6-22) Glucose 88 (80-110) mg/dL Calcium 9.0 (8.4-10.2) mg/dL Total Bilirubin 0.8 (0.2-1.3) mg/dL AST 349 H (17-59) IU/L ALT 533 H (<50) IU/L Alkaline Phosphatase 89 (38-126) U/L Total Protein 6.7 (6.3-8.2) g/dL Albumin 3.9 (3.5-5.0) g/dL Globulin 2.8 (1.7-4.1) g/dL Albumin/Globulin Ratio 1.4 (1.0-2.8) Lipase 47 (23-300) U/L Urine Dip Bedside Urine Glucose Negative Bedside Urine Bilirubin - Negative Bedside Urine Ketone - Negative Urine Specific [place] 1.005 Bedside Urine Occult Blood - Negative Bedside Urine Protein - Negative Bedside Urine Urobilinogen - Negative Bedside Urine Nitrite - Negative Bedside Urine Leukocytes - Negative Esterase MDM Narrative Medical decision making narrative: Patient is 73-year-old male followed by [facility] for ongoing cancer treatment here for repeat blood work. He was here January 27 found to have an AST of 373 and ALT 529 which is elevated from December 28 with AST of 121 ALT 214. Today numbers are stable he continues to have AST 349 ALT 533 bilirubin today is 0.8. Other blood work is unremarkable At this time patient is asymptomatic blood work is stable. He recently had imaging and an MRI done at [facility]. He is yet to have a scan review. He has no new complaints. His lab reports are printed off for him. [facility] has been updated by nursing. Discharge Plan Departure Patient Disposition: Home Clinical Impression: Elevated liver enzymes Activity Restrictions/Additional Instructions: *You have been diagnosed with elevated liver enzymes *What to do: Blood work today looks stable please follow-up with [facility] and your scan review *Continue to take medications as directed *Follow up with your primary care provider in 2-3 days or call [phone] *Return to ER if you should have any new, worsening or concerning symptoms Prescriptions: No Action imatinib 400 mg tablet 400 mg PO DAILY Qty: 90 0RF dalfampridine 10 mg tablet extended release 12 hr 20 mg PO Q12H Qty: 90 0RF ezetimibe 10 mg tablet 10 mg PO DAILY Qty: 90 1RF Aminopyridine PO acetazolamide 250 mg Tablet 125 mg PO BID Referrals: Leonel Pugh DO [Primary Care Provider] - Stand Alone Forms: Patient Portal/API
== END 2024-02-06 16:09 | disposition home or self-care (01) ==
PROVIDERS: Emergency Provider Emergency Medicine; Family Provider Family Medicine; PCP Family Medicine
DX: R74.01 Elevation of levels of liver transaminase levels (principal)
CPT/HCPCS: 80053; 81003; 83690; 85025; 85610; 85730; 99282

== ENCOUNTER → 2024-02-21 10:40 | Outpatient (CLI) | payer MEDICARE, SELFPAY ==
[2024-02-21 12:07] LABS: Monotest Negative (Negative)
[2024-02-21 12:20] LABS: Alanine Aminotransferase 191 IU/L (<50); Albumin 3.3 g/dL (3.5-5.0); Albumin Globulin Ratio 1.5 (1.0-2.8); Alkaline Phosphatase 79 U/L (38-126); Aspartate Aminotransferase 103 IU/L (17-59); BUN Creatinine Ratio 16.9 (6-22); Bilirubin Total 0.7 mg/dL (0.2-1.3); Blood Urea Nitrogen 12 mg/dL (9-20); Calcium 8.3 mg/dL (8.4-10.2); Carbon Dioxide 26 mmol/L (22-32); Chloride 104 mmol/L (98-107); Creatine Kinase 81 U/L (55-170); Estimated Glomerular Filt Rate > 60 mL/min (>60); Globulin 2.2 g/dL (1.7-4.1); Glucose 123 mg/dL (80-110); HEMOLYSIS < 15 (0-50); Potassium 4.3 mmol/L (3.4-5.1); Sodium 136 mmol/L (137-145); Total Protein 5.5 g/dL (6.3-8.2)
[2024-02-21 12:27] LABS: Total Iron Binding Capacity 274 ug/dL (261-462)
[2024-02-21 12:50] LABS: Thyroid Stimulating Hormone 0.917 uIU/mL (0.47-4.68)
[2024-02-21 12:54] LABS: Ferritin 904 ng/mL (18-464)
[2024-02-22 08:09] LABS: Ceruloplasmin 26.2 mg/dL (16.0-31.0)
[2024-02-23 17:08] LABS: Smooth Muscle Antibody 4 Units (0-19)
[2024-02-23 18:04] LABS: HIV 1 & 2 Ab/Ag 4th Gen Combo NEGATIVE (NEGATIVE)
[2024-02-24 13:36] LABS: ANA Screen, IFA Negative (.)
== END ==
PROVIDERS: Family Provider Family Medicine; PCP Family Medicine; Referring Provider Internal Medicine; Visit Provider Internal Medicine
DX: R74.01 Elevation of levels of liver transaminase levels (principal)
CPT/HCPCS: 36415; 80053; 82390; 82550; 82728; 83550; 84443; 86015; 86038; 86318; 87389

== ENCOUNTER → 2024-04-21 09:24 | Outpatient (CLI) | payer MEDICARE, SELFPAY ==
--- NOTE | 2024-04-21 09:24 | DI.MRI.S_ITS ---
PROCEDURE: MR ABDOMEN WO/W CON INDICATIONS: GIST TECHNIQUE: Coronal HASTE, axial 2D FLASH in- and [id number]; axial breath-hold T2 FSE. Dynamic axial VIBE during the administration of contrast; post-contrast coronal VIBE or 2D FLASH with fat saturation from the hepatic dome to the iliac crests. Optional diffusion weighted imaging and ADC may be performed. COMPARISON: [facility], MR, MR ABDOMEN WO/W CON, 06/14/2023, 8:57. FINDINGS: Image quality: Diagnostic Lower chest: No basal effusions. Liver: Unremarkable. No suspicious new or enlarging lesion. A possible tiny lesion at the left lobe dome () is stable. This may represent a small cyst or hemangioma Gallbladder and biliary system: Unremarkable, nondilated Pancreas: No ductal dilation. Ikhk-xp-[id number] parenchymal atrophy Spleen: Nonenlarged Adrenals: No discrete nodules Kidneys: No solid mass or hydronephrosis Vessels and lymph nodes: The main portal vein appears patent. No abdominal aortic aneurysm. No pathologic lymph nodes identified by size criteria. Bowel and peritoneum: No evidence of small bowel obstruction. Moderate fecal loading. No pathologic ascites. Body wall: Unremarkable Bones: Degenerative changes. IMPRESSION: No active metastatic disease identified in the abdomen. Dictated by: Cuco Swanson M.D. on 04/21/2024 at 15:47 Approved by: Cuco Swanson M.D. on 04/21/2024 at 15:52
== END ==
PROVIDERS: Family Provider Family Medicine; PCP Family Medicine; Referring Provider Family Medicine; Visit Provider Family Medicine
DX: C49.A4 Gastrointestinal stromal tumor of large intestine (principal)
CPT/HCPCS: 74183; A9579

== ENCOUNTER → 2024-04-22 09:19 | Outpatient (CLI) | payer MEDICARE, SELFPAY ==
--- NOTE | 2024-04-22 | DI.MRI.S_ITS ---
PROCEDURE: MR PELIS WO/W CON INDICATIONS: Gastrointestinal stromal tumor of large intestine TECHNIQUE: Coronal HASTE, sagittal T2 FSE, axial T1 FSE, axial and coronal nonbreath-hold T2 FSE. Axial dynamic VIBE during administration of contrast. Post-contrast axial and coronal VIBE/2-D FLASH with fat saturation from the iliac crests to the symphysis. Optional diffusion weighted imaging and ADC may be performed. COMPARISON: [facility], MR, MR PELVIS WO/W CON, 06/15/2023, 9:04. FINDINGS: Image quality: Diagnostic Rectum: Morphology: Previously polypoid lesion in the lower rectum at 5-8 o'clock at the level of the puborectalis Clock face of tumor involvement: 5-8 o'clock Mucinous (high T2 signal): No. The lesion has lower T2 signal on today's study and now measures about 0.9 cm, previously 1.3 cm. There is fibrosis along the wall where the lesion was attached adjacent to the puborectalis and intersphincteric space Craniocaudal length: 0.9 cm Distance to anal verge: 4 cm Distance to top of sphincter complex/anorectal junction: At the sphincter complex Relationship to anterior peritoneal reflection: Below Tumor at or below puborectalis sling: At the puborectalis sling T staging: ymrT1/2. No viable extramural disease identified. TRG 2. The fibrosis extends to the intersphincteric space and probably contacts the puborectalis. Regional lymph nodes (mesorectal, inguinal, iliac): No suspicious lymph nodes identified Other bowel and peritoneum: No small bowel obstruction in the lower abdomen. No pathologic ascites. No aneurysmal vessel identified. Trace pelvic free fluid is noted. Bones: There are degenerative changes. Possible tendinosis involving the hamstring origins bilaterally. Possible bilateral hydroceles IMPRESSION: Fibrotic signal and decreased size of the right posterior rectal lesion, with fibrosis extending to the intersphincteric space and contacting the right puborectalis. No viable extramural disease identified. ymrT1/2. TRG2. N0 Other findings above. Dictated by: Cuco Swanson M.D. on 04/23/2024 at 13:02 Approved by: Cuco Swanson M.D. on 04/23/2024 at 13:10
== END ==
PROVIDERS: Family Provider Family Medicine; PCP Family Medicine; Referring Provider Physician Assistant; Visit Provider Physician Assistant
DX: C49.A4 Gastrointestinal stromal tumor of large intestine (principal)
CPT/HCPCS: 72197; A9579

== ENCOUNTER → 2024-04-26 07:05 | Outpatient (CLI) | payer MEDICARE, SELFPAY ==
[2024-04-26 08:03] LABS: Add Manual Diff / Slide Review NO; Basophils Absolute Auto 0 /uL (0-100); Basophils Percent Auto 0.2 % (0-2); Eosinophils Absolute Auto 100 /uL (0-450); Eosinophils Percent Auto 1.1 % (2-4); Hematocrit 47.5 % (41-53); Hemoglobin 16.3 g/dL (13.5-17.5); Lymphocytes Absolute Auto 1100 /uL (1100-4500); Lymphocytes Percent Auto 15.5 % (25-40); Mean Corpuscular HGB Conc 34.2 % (30-36); Mean Corpuscular Hemoglobin 34.5 PG (26-34); Mean Corpuscular Volume 100.8 fL (80-100); Monocytes Absolute Auto 500 /uL (0-900); Monocytes Percent Auto 7.3 % (3-14); Neutrophils Absolute Auto 5600 /uL (1500-7000); Neutrophils Percent Auto 75.9 % (50-75); Platelet Count 287 X10^3/uL (150-400); Red Blood Cell Count 4.71 X10^6/uL (4.5-5.9); Red Cell Distribution Width 14.8 % (11.6-14.8); White Blood Cell Count 7.4 X10^3/uL (4.5-11.0)
[2024-04-26 08:07] LABS: Appearance Urine UA CLEAR; Bilirubin Urine UA NEGATIVE (NEGATIVE); Color Urine UA YELLOW; Glucose Urine UA NEGATIVE (Negative); Ketones Urine UA NEGATIVE (NEGATIVE); Leukocyte Esterase Urine UA NEGATIVE (NEGATIVE); Nitrite Urine UA NEGATIVE (Negative); Occult Blood Urine UA NEGATIVE (Negative); Protein Urine UA NEGATIVE (Negative); Specific Gravity Urine UA <=1.005 (1.000-1.035); Urobilinogen Urine UA 0.2 E.U./dL (0.2); pH Urine UA 6.5 (4.5-8.0)
[2024-04-26 08:18] LABS: Bacteria Urine None Seen; RBC Urine None Seen (0-5/HPF); Squamous Epithelial Cell Urine None Seen (0-5/HPF); Urine Volume 10mL (spun); WBC Urine None Seen (0-5/HPF)
[2024-04-26 08:19] LABS: Culture Indicated Urine Cult Not Indicated
[2024-04-26 08:30] LABS: Protein (Total) Urine Random 11 mg/dL (0-12)
[2024-04-26 08:49] LABS: Erythrocyte Sedimentation Rate 2 MM/HR (0-15)
[2024-04-26 08:52] LABS: TSH w/ Reflex to FT4 3.22 uIU/mL (0.47-4.68)
[2024-04-26 09:16] LABS: HEMOLYSIS < 15 (0-50)
[2024-04-26 09:24] LABS: Alanine Aminotransferase 22 IU/L (<50); Albumin 4.1 g/dL (3.5-5.0); Albumin Globulin Ratio 1.6 (1.0-2.8); Alkaline Phosphatase 61 U/L (38-126); Aspartate Aminotransferase 25 IU/L (17-59); BUN Creatinine Ratio 27.2 (6-22); Bilirubin Total 0.6 mg/dL (0.2-1.3); Blood Urea Nitrogen 22 mg/dL (9-20); C-Reactive Protein Quant < 0.5 mg/dL (<1.0); Calcium 9.5 mg/dL (8.4-10.2); Carbon Dioxide 24 mmol/L (22-32); Chloride 103 mmol/L (98-107); Estimated Glomerular Filt Rate > 60 mL/min (>60); Globulin 2.5 g/dL (1.7-4.1); Glucose 98 mg/dL (80-110); Phosphorous 3.6 mg/dL (2.3-3.7); Potassium 4.3 mmol/L (3.4-5.1); Sodium 136 mmol/L (137-145); Total Protein 6.6 g/dL (6.3-8.2)
[2024-04-26 09:38] LABS: Rheumatoid Factor < 8.6 IU/mL (<12.0)
[2024-04-27 23:36] LABS: CCP Antibodies IgG/IgA 6 units (0-19)
[2024-04-28 09:36] LABS: Albumin 3.6 g/dL (2.9-4.4); Alpha-1-Globulin 0.3 g/dL (0.0-0.4); Alpha-2-Globulin 0.7 g/dL (0.4-1.0); Gamma Globulin 0.8 g/dL (0.4-1.8); Globulin Total 2.7 g/dL (2.2-3.9); Protein, Total 6.3 g/dL (6.0-8.5)
[2024-04-29 14:41] LABS: M-Spike % Not Observed % (Not Observed); Urine Total Protein <4.0 mg/dL (Not Estab.)
== END ==
PROVIDERS: Family Provider Family Medicine; PCP Family Medicine; Referring Provider Internal Medicine Rheumatology; Visit Provider Internal Medicine Sleep Medicine
DX: C49.A4 Gastrointestinal stromal tumor of large intestine (principal); M35.3 Polymyalgia rheumatica; M25.50 Pain in unspecified joint; R79.89 Other specified abnormal findings of blood chemistry; Z79.52 Long term (current) use of systemic steroids
CPT/HCPCS: 36415; 80053; 81001; 84100; 84155; 84156; 84165; 84166; 84443; 85025; 85651; 86140; 86200; 86430

== ENCOUNTER → 2024-05-04 15:49 | Outpatient (CLI) | payer MEDICARE, SELFPAY ==
[2024-05-04 17:05] LABS: Add Manual Diff / Slide Review NO; Basophils Absolute Auto 0 /uL (0-100); Basophils Percent Auto 0.3 % (0-2); Eosinophils Absolute Auto 0 /uL (0-450); Eosinophils Percent Auto 0.5 % (2-4); Hematocrit 48.2 % (41-53); Hemoglobin 16.2 g/dL (13.5-17.5); Lymphocytes Absolute Auto 1100 /uL (1100-4500); Mean Corpuscular HGB Conc 33.7 % (30-36); Mean Corpuscular Hemoglobin 34.3 PG (26-34); Mean Corpuscular Volume 101.8 fL (80-100); Monocytes Absolute Auto 600 /uL (0-900); Monocytes Percent Auto 6.7 % (3-14); Neutrophils Absolute Auto 7700 /uL (1500-7000); Neutrophils Percent Auto 80.5 % (50-75); Platelet Count 307 X10^3/uL (150-400); Red Blood Cell Count 4.73 X10^6/uL (4.5-5.9); White Blood Cell Count 9.5 X10^3/uL (4.5-11.0)
[2024-05-04 17:57] LABS: Free T4, Direct Thyroxine 0.88 ng/dL (0.78-2.19)
[2024-05-04 18:00] LABS: Alanine Aminotransferase 29 IU/L (<50); Albumin 4.2 g/dL (3.5-5.0); Albumin Globulin Ratio 1.6 (1.0-2.8); Alkaline Phosphatase 55 U/L (38-126); Aspartate Aminotransferase 27 IU/L (17-59); BUN Creatinine Ratio 27.7 (6-22); Bilirubin Total 0.5 mg/dL (0.2-1.3); Blood Urea Nitrogen 31 mg/dL (9-20); Calcium 9.5 mg/dL (8.4-10.2); Carbon Dioxide 29 mmol/L (22-32); Chloride 100 mmol/L (98-107); Estimated Glomerular Filt Rate > 60 mL/min (>60); Globulin 2.6 g/dL (1.7-4.1); Glucose 101 mg/dL (80-110); HEMOLYSIS 16 (0-50); Phosphorous 4.1 mg/dL (2.3-3.7); Potassium 4.8 mmol/L (3.4-5.1); Sodium 137 mmol/L (137-145); Total Protein 6.8 g/dL (6.3-8.2)
== END ==
PROVIDERS: Family Provider Family Medicine; PCP Family Medicine; Referring Provider Physician Assistant; Visit Provider Physician Assistant
DX: C49.A4 Gastrointestinal stromal tumor of large intestine (principal)
CPT/HCPCS: 36415; 80053; 84100; 84439; 85025

== ENCOUNTER → 2024-05-11 14:22 | Outpatient (CLI) | payer MEDICARE, SELFPAY ==
[2024-05-11 14:47] LABS: Add Manual Diff / Slide Review NO; Basophils Absolute Auto 0 /uL (0-100); Basophils Percent Auto 0.3 % (0-2); Eosinophils Absolute Auto 0 /uL (0-450); Eosinophils Percent Auto 0.3 % (2-4); Hematocrit 46.6 % (41-53); Hemoglobin 15.8 g/dL (13.5-17.5); Lymphocytes Absolute Auto 900 /uL (1100-4500); Lymphocytes Percent Auto 10.7 % (25-40); Mean Corpuscular Hemoglobin 34.6 PG (26-34); Mean Corpuscular Volume 101.9 fL (80-100); Monocytes Absolute Auto 400 /uL (0-900); Monocytes Percent Auto 5.2 % (3-14); Neutrophils Absolute Auto 6900 /uL (1500-7000); Neutrophils Percent Auto 83.5 % (50-75); Platelet Count 271 X10^3/uL (150-400); Red Blood Cell Count 4.57 X10^6/uL (4.5-5.9); Red Cell Distribution Width 15.1 % (11.6-14.8); White Blood Cell Count 8.2 X10^3/uL (4.5-11.0)
[2024-05-11 15:11] LABS: Alanine Aminotransferase 30 IU/L (<50); Albumin 4.1 g/dL (3.5-5.0); Albumin Globulin Ratio 1.8 (1.0-2.8); Alkaline Phosphatase 60 U/L (38-126); Aspartate Aminotransferase 27 IU/L (17-59); BUN Creatinine Ratio 26.4 (6-22); Bilirubin Total 0.7 mg/dL (0.2-1.3); Blood Urea Nitrogen 23 mg/dL (9-20); Calcium 9.5 mg/dL (8.4-10.2); Carbon Dioxide 29 mmol/L (22-32); Chloride 102 mmol/L (98-107); Estimated Glomerular Filt Rate > 60 mL/min (>60); Globulin 2.3 g/dL (1.7-4.1); Glucose 127 mg/dL (80-110); HEMOLYSIS < 15 (0-50); Phosphorous 3.3 mg/dL (2.3-3.7); Potassium 4.6 mmol/L (3.4-5.1); Sodium 136 mmol/L (137-145); Total Protein 6.4 g/dL (6.3-8.2)
== END ==
LOC: LAB 14:27
PROVIDERS: Family Provider Family Medicine; PCP Family Medicine; Referring Provider Physician Assistant; Visit Provider Physician Assistant
DX: C49.A4 Gastrointestinal stromal tumor of large intestine (principal)
CPT/HCPCS: 36415; 80053; 84100; 85025

== ENCOUNTER → 2024-05-18 12:20 | Outpatient (CLI) | payer MEDICARE, SELFPAY ==
[2024-05-18 13:20] LABS: Add Manual Diff / Slide Review NO; Basophils Absolute Auto 0 /uL (0-100); Basophils Percent Auto 0.2 % (0-2); Eosinophils Absolute Auto 0 /uL (0-450); Eosinophils Percent Auto 0.2 % (2-4); Hematocrit 46.9 % (41-53); Lymphocytes Absolute Auto 700 /uL (1100-4500); Lymphocytes Percent Auto 10.4 % (25-40); Mean Corpuscular HGB Conc 34.1 % (30-36); Mean Corpuscular Hemoglobin 34.9 PG (26-34); Mean Corpuscular Volume 102.4 fL (80-100); Monocytes Absolute Auto 300 /uL (0-900); Monocytes Percent Auto 4.4 % (3-14); Neutrophils Absolute Auto 5800 /uL (1500-7000); Neutrophils Percent Auto 84.8 % (50-75); Platelet Count 245 X10^3/uL (150-400); Red Blood Cell Count 4.58 X10^6/uL (4.5-5.9); Red Cell Distribution Width 15.3 % (11.6-14.8); White Blood Cell Count 6.8 X10^3/uL (4.5-11.0)
[2024-05-18 13:28] LABS: Appearance Urine UA CLEAR; Bilirubin Urine UA NEGATIVE (NEGATIVE); Color Urine UA YELLOW; Glucose Urine UA NEGATIVE (Negative); Ketones Urine UA NEGATIVE (NEGATIVE); Leukocyte Esterase Urine UA NEGATIVE (NEGATIVE); Nitrite Urine UA NEGATIVE (Negative); Occult Blood Urine UA NEGATIVE (Negative); Protein Urine UA NEGATIVE (Negative); Urobilinogen Urine UA 0.2 E.U./dL (0.2)
[2024-05-18 13:39] LABS: Erythrocyte Sedimentation Rate 1 MM/HR (0-15)
[2024-05-18 13:51] LABS: Bacteria Urine None Seen; Culture Indicated Urine Cult Not Indicated; RBC Urine None Seen (0-5/HPF); Squamous Epithelial Cell Urine 0-1 /HPF (0-5/HPF); Urine Volume 10mL (spun); WBC Urine None Seen (0-5/HPF)
[2024-05-18 13:54] LABS: Rheumatoid Factor 10.1 IU/mL (<12.0)
[2024-05-18 13:55] LABS: C-Reactive Protein Quant < 0.5 mg/dL (<1.0)
[2024-05-18 13:55] LABS: Alanine Aminotransferase 28 IU/L (<50); Albumin 4.2 g/dL (3.5-5.0); Albumin Globulin Ratio 1.8 (1.0-2.8); Alkaline Phosphatase 54 U/L (38-126); Aspartate Aminotransferase 30 IU/L (17-59); BUN Creatinine Ratio 23.4 (6-22); Bilirubin Total 0.8 mg/dL (0.2-1.3); Blood Urea Nitrogen 22 mg/dL (9-20); Calcium 9.4 mg/dL (8.4-10.2); Carbon Dioxide 33 mmol/L (22-32); Chloride 99 mmol/L (98-107); Estimated Glomerular Filt Rate > 60 mL/min (>60); Globulin 2.3 g/dL (1.7-4.1); Glucose 93 mg/dL (80-110); HEMOLYSIS < 15 (0-50); Phosphorous 3.2 mg/dL (2.3-3.7); Potassium 4.6 mmol/L (3.4-5.1); Sodium 136 mmol/L (137-145); Total Protein 6.5 g/dL (6.3-8.2)
[2024-05-18 14:21] LABS: TSH w/ Reflex to FT4 1.19 uIU/mL (0.47-4.68)
[2024-05-20 08:36] LABS: CCP Antibodies IgG/IgA 3 units (0-19)
[2024-05-20 13:36] LABS: ANA Screen, IFA Negative (.)
[2024-05-20 14:17] LABS: Albumin 3.7 g/dL (2.9-4.4); Alpha-1-Globulin 0.2 g/dL (0.0-0.4); Alpha-2-Globulin 0.6 g/dL (0.4-1.0); Gamma Globulin 0.7 g/dL (0.4-1.8); Globulin Total 2.4 g/dL (2.2-3.9); Protein, Total 6.1 g/dL (6.0-8.5)
[2024-05-21 11:36] LABS: Beta Globulin, Ur 31.3 % (.); Gamma Globulin, Ur 22.3 % (.); M-Spike % Not Observed % (Not Observed); Urine Total Protein 5.5 mg/dL (Not Estab.)
== END ==
PROVIDERS: Internal Medicine Rheumatology; Family Provider Family Medicine; PCP Family Medicine; Referring Provider Physician Assistant; Visit Provider Physician Assistant
DX: C49.A4 Gastrointestinal stromal tumor of large intestine (principal)
CPT/HCPCS: 36415; 80053; 81001; 84100; 84155; 84156; 84165; 84166; 84443; 85025; 85651; 86038; 86140; 86200; 86430

== ENCOUNTER → 2024-06-01 11:25 | Outpatient (CLI) | payer MEDICARE, SELFPAY ==
[2024-06-01 12:59] LABS: Add Manual Diff / Slide Review NO; Basophils Absolute Auto 0 /uL (0-100); Basophils Percent Auto 0.3 % (0-2); Eosinophils Absolute Auto 0 /uL (0-450); Eosinophils Percent Auto 0.5 % (2-4); Hematocrit 44.7 % (41-53); Hemoglobin 15.3 g/dL (13.5-17.5); Lymphocytes Absolute Auto 500 /uL (1100-4500); Lymphocytes Percent Auto 8.6 % (25-40); Mean Corpuscular HGB Conc 34.3 % (30-36); Mean Corpuscular Hemoglobin 35.6 PG (26-34); Mean Corpuscular Volume 103.8 fL (80-100); Monocytes Absolute Auto 200 /uL (0-900); Monocytes Percent Auto 3.5 % (3-14); Neutrophils Absolute Auto 5500 /uL (1500-7000); Neutrophils Percent Auto 87.1 % (50-75); Platelet Count 236 X10^3/uL (150-400); Red Blood Cell Count 4.31 X10^6/uL (4.5-5.9); Red Cell Distribution Width 14.9 % (11.6-14.8); White Blood Cell Count 6.3 X10^3/uL (4.5-11.0)
[2024-06-01 13:37] LABS: Alanine Aminotransferase 33 IU/L (<50); Albumin 4.1 g/dL (3.5-5.0); Albumin Globulin Ratio 1.8 (1.0-2.8); Alkaline Phosphatase 50 U/L (38-126); Aspartate Aminotransferase 35 IU/L (17-59); BUN Creatinine Ratio 20.4 (6-22); Bilirubin Total 0.8 mg/dL (0.2-1.3); Blood Urea Nitrogen 20 mg/dL (9-20); Calcium 8.8 mg/dL (8.4-10.2); Carbon Dioxide 32 mmol/L (22-32); Chloride 100 mmol/L (98-107); Estimated Glomerular Filt Rate > 60 mL/min (>60); Globulin 2.3 g/dL (1.7-4.1); Glucose 108 mg/dL (80-110); HEMOLYSIS < 15 (0-50); Phosphorous 2.4 mg/dL (2.3-3.7); Potassium 4.3 mmol/L (3.4-5.1); Sodium 136 mmol/L (137-145); Total Protein 6.4 g/dL (6.3-8.2)
[2024-06-01 14:02] LABS: TSH w/ Reflex to FT4 1.07 uIU/mL (0.47-4.68)
== END ==
PROVIDERS: Family Provider Family Medicine; PCP Family Medicine; Referring Provider Physician Assistant; Visit Provider Physician Assistant
DX: C49.A4 Gastrointestinal stromal tumor of large intestine (principal)
CPT/HCPCS: 36415; 80053; 84100; 84443; 85025

== ENCOUNTER → 2024-06-14 09:24 | Outpatient (CLI) | payer MEDICARE, SELFPAY ==
[2024-06-14 10:55] LABS: Add Manual Diff / Slide Review NO; Basophils Absolute Auto 0 /uL (0-100); Basophils Percent Auto 0.2 % (0-2); Eosinophils Absolute Auto 0 /uL (0-450); Eosinophils Percent Auto 0.3 % (2-4); Hemoglobin 15.5 g/dL (13.5-17.5); Lymphocytes Absolute Auto 600 /uL (1100-4500); Lymphocytes Percent Auto 7.2 % (25-40); Mean Corpuscular HGB Conc 34.4 % (30-36); Mean Corpuscular Hemoglobin 35.8 PG (26-34); Monocytes Absolute Auto 500 /uL (0-900); Monocytes Percent Auto 6.5 % (3-14); Neutrophils Absolute Auto 7000 /uL (1500-7000); Neutrophils Percent Auto 85.8 % (50-75); Platelet Count 222 X10^3/uL (150-400); Red Blood Cell Count 4.33 X10^6/uL (4.5-5.9); Red Cell Distribution Width 14.3 % (11.6-14.8); White Blood Cell Count 8.1 X10^3/uL (4.5-11.0)
[2024-06-14 11:25] LABS: Alanine Aminotransferase 37 IU/L (<50); Albumin 4.1 g/dL (3.5-5.0); Albumin Globulin Ratio 1.9 (1.0-2.8); Alkaline Phosphatase 59 U/L (38-126); Aspartate Aminotransferase 39 IU/L (17-59); BUN Creatinine Ratio 19.4 (6-22); Bilirubin Total 0.8 mg/dL (0.2-1.3); Blood Urea Nitrogen 18 mg/dL (9-20); Calcium 9.3 mg/dL (8.4-10.2); Carbon Dioxide 25 mmol/L (22-32); Chloride 102 mmol/L (98-107); Estimated Glomerular Filt Rate > 60 mL/min (>60); Globulin 2.2 g/dL (1.7-4.1); Glucose 109 mg/dL (80-110); HEMOLYSIS < 15 (0-50); Phosphorous 2.7 mg/dL (2.3-3.7); Potassium 4.1 mmol/L (3.4-5.1); Sodium 135 mmol/L (137-145); Total Protein 6.3 g/dL (6.3-8.2)
== END ==
PROVIDERS: Family Provider Family Medicine; PCP Family Medicine; Referring Provider Physician Assistant; Visit Provider Physician Assistant
DX: C49.A4 Gastrointestinal stromal tumor of large intestine (principal)
CPT/HCPCS: 36415; 80053; 84100; 85025

== ENCOUNTER → 2024-06-18 09:32 | Outpatient (CLI) | payer MEDICARE, SELFPAY ==
[2024-06-18 10:25] LABS: Add Manual Diff / Slide Review NO; Basophils Absolute Auto 0 /uL (0-100); Basophils Percent Auto 0.3 % (0-2); Eosinophils Absolute Auto 100 /uL (0-450); Eosinophils Percent Auto 1.1 % (2-4); Hematocrit 46.5 % (41-53); Hemoglobin 15.9 g/dL (13.5-17.5); Lymphocytes Absolute Auto 900 /uL (1100-4500); Lymphocytes Percent Auto 11.7 % (25-40); Mean Corpuscular HGB Conc 34.1 % (30-36); Mean Corpuscular Hemoglobin 35.7 PG (26-34); Mean Corpuscular Volume 104.6 fL (80-100); Monocytes Absolute Auto 400 /uL (0-900); Monocytes Percent Auto 5.1 % (3-14); Neutrophils Absolute Auto 6400 /uL (1500-7000); Neutrophils Percent Auto 81.8 % (50-75); Platelet Count 235 X10^3/uL (150-400); Red Blood Cell Count 4.45 X10^6/uL (4.5-5.9); Red Cell Distribution Width 14.7 % (11.6-14.8); White Blood Cell Count 7.9 X10^3/uL (4.5-11.0)
[2024-06-18 10:41] LABS: Alanine Aminotransferase 35 IU/L (<50); Albumin 4.1 g/dL (3.5-5.0); Albumin Globulin Ratio 1.9 (1.0-2.8); Alkaline Phosphatase 52 U/L (38-126); Aspartate Aminotransferase 32 IU/L (17-59); BUN Creatinine Ratio 19.6 (6-22); Bilirubin Total 0.7 mg/dL (0.2-1.3); Blood Urea Nitrogen 19 mg/dL (9-20); Calcium 9.5 mg/dL (8.4-10.2); Carbon Dioxide 32 mmol/L (22-32); Chloride 101 mmol/L (98-107); Estimated Glomerular Filt Rate > 60 mL/min (>60); Globulin 2.2 g/dL (1.7-4.1); Glucose 115 mg/dL (80-110); HEMOLYSIS < 15 (0-50); Phosphorous 2.7 mg/dL (2.3-3.7); Potassium 4.1 mmol/L (3.4-5.1); Sodium 138 mmol/L (137-145); Total Protein 6.3 g/dL (6.3-8.2)
== END ==
LOC: LAB 09:33
PROVIDERS: Family Provider Family Medicine; PCP Family Medicine; Referring Provider Physician Assistant; Visit Provider Physician Assistant
DX: C49.A4 Gastrointestinal stromal tumor of large intestine (principal)
CPT/HCPCS: 36415; 80053; 84100; 85025

== ENCOUNTER → 2024-06-26 11:05 | Outpatient (CLI) | payer MEDICARE, SELFPAY ==
[2024-06-26 11:39] LABS: Add Manual Diff / Slide Review NO; Basophils Absolute Auto 0 /uL (0-100); Basophils Percent Auto 0.4 % (0-2); Eosinophils Absolute Auto 0 /uL (0-450); Eosinophils Percent Auto 0.6 % (2-4); Hematocrit 44.4 % (41-53); Hemoglobin 15.4 g/dL (13.5-17.5); Lymphocytes Absolute Auto 600 /uL (1100-4500); Lymphocytes Percent Auto 10.4 % (25-40); Mean Corpuscular HGB Conc 34.7 % (30-36); Mean Corpuscular Hemoglobin 36.4 PG (26-34); Monocytes Absolute Auto 300 /uL (0-900); Monocytes Percent Auto 4.5 % (3-14); Neutrophils Absolute Auto 5100 /uL (1500-7000); Neutrophils Percent Auto 84.1 % (50-75); Platelet Count 282 X10^3/uL (150-400); Red Blood Cell Count 4.23 X10^6/uL (4.5-5.9); Red Cell Distribution Width 14.3 % (11.6-14.8); White Blood Cell Count 6.1 X10^3/uL (4.5-11.0)
[2024-06-26 11:50] LABS: Alanine Aminotransferase 43 IU/L (<50); Albumin 4.2 g/dL (3.5-5.0); Albumin Globulin Ratio 1.9 (1.0-2.8); Alkaline Phosphatase 51 U/L (38-126); Aspartate Aminotransferase 39 IU/L (17-59); BUN Creatinine Ratio 24.4 (6-22); Bilirubin Total 0.7 mg/dL (0.2-1.3); Blood Urea Nitrogen 21 mg/dL (9-20); Calcium 9.7 mg/dL (8.4-10.2); Carbon Dioxide 31 mmol/L (22-32); Chloride 102 mmol/L (98-107); Estimated Glomerular Filt Rate > 60 mL/min (>60); Globulin 2.2 g/dL (1.7-4.1); Glucose 100 mg/dL (80-110); HEMOLYSIS < 15 (0-50); Phosphorous 2.5 mg/dL (2.3-3.7); Potassium 4.7 mmol/L (3.4-5.1); Sodium 137 mmol/L (137-145); Total Protein 6.4 g/dL (6.3-8.2)
== END ==
PROVIDERS: Family Provider Family Medicine; PCP Family Medicine; Referring Provider Physician Assistant; Visit Provider Physician Assistant
DX: C49.A4 Gastrointestinal stromal tumor of large intestine (principal)
CPT/HCPCS: 36415; 80053; 84100; 85025

== ENCOUNTER → 2024-07-02 14:36 | Outpatient (CLI) | payer MEDICARE, SELFPAY ==
[2024-07-02 15:32] LABS: Add Manual Diff / Slide Review NO; Basophils Absolute Auto 0 /uL (0-100); Basophils Percent Auto 0.4 % (0-2); Eosinophils Absolute Auto 0 /uL (0-450); Eosinophils Percent Auto 0.4 % (2-4); Hematocrit 44.2 % (41-53); Lymphocytes Absolute Auto 700 /uL (1100-4500); Lymphocytes Percent Auto 9.3 % (25-40); Mean Corpuscular HGB Conc 33.9 % (30-36); Mean Corpuscular Volume 106.4 fL (80-100); Monocytes Absolute Auto 400 /uL (0-900); Monocytes Percent Auto 5.3 % (3-14); Neutrophils Absolute Auto 6400 /uL (1500-7000); Neutrophils Percent Auto 84.6 % (50-75); Platelet Count 254 X10^3/uL (150-400); Red Blood Cell Count 4.15 X10^6/uL (4.5-5.9); White Blood Cell Count 7.6 X10^3/uL (4.5-11.0)
[2024-07-02 15:46] LABS: Alanine Aminotransferase 45 IU/L (<50); Albumin 4.2 g/dL (3.5-5.0); Alkaline Phosphatase 64 U/L (38-126); Aspartate Aminotransferase 45 IU/L (17-59); BUN Creatinine Ratio 20.8 (6-22); Bilirubin Total 0.6 mg/dL (0.2-1.3); Blood Urea Nitrogen 21 mg/dL (9-20); Calcium 9.2 mg/dL (8.4-10.2); Carbon Dioxide 27 mmol/L (22-32); Chloride 104 mmol/L (98-107); Estimated Glomerular Filt Rate > 60 mL/min (>60); Globulin 2.1 g/dL (1.7-4.1); Glucose 105 mg/dL (80-110); HEMOLYSIS < 15 (0-50); Phosphorous 2.9 mg/dL (2.3-3.7); Potassium 4.3 mmol/L (3.4-5.1); Sodium 137 mmol/L (137-145); Total Protein 6.3 g/dL (6.3-8.2)
== END ==
PROVIDERS: Family Provider Family Medicine; PCP Family Medicine; Referring Provider Physician Assistant; Visit Provider Physician Assistant
DX: C49.A4 Gastrointestinal stromal tumor of large intestine (principal)
CPT/HCPCS: 36415; 80053; 84100; 85025

== ENCOUNTER → 2024-07-16 16:20 | Outpatient (CLI) | payer MEDICARE, SELFPAY ==
[2024-07-16 18:25] LABS: Add Manual Diff / Slide Review NO; Basophils Absolute Auto 0 /uL (0-100); Basophils Percent Auto 0.3 % (0-2); Eosinophils Absolute Auto 0 /uL (0-450); Eosinophils Percent Auto 0.8 % (2-4); Hematocrit 42.2 % (41-53); Hemoglobin 14.4 g/dL (13.5-17.5); Lymphocytes Absolute Auto 900 /uL (1100-4500); Mean Corpuscular HGB Conc 34.1 % (30-36); Mean Corpuscular Hemoglobin 36.6 PG (26-34); Mean Corpuscular Volume 107.3 fL (80-100); Monocytes Absolute Auto 400 /uL (0-900); Monocytes Percent Auto 7.4 % (3-14); Neutrophils Absolute Auto 4300 /uL (1500-7000); Neutrophils Percent Auto 75.5 % (50-75); Platelet Count 250 X10^3/uL (150-400); Red Blood Cell Count 3.93 X10^6/uL (4.5-5.9); White Blood Cell Count 5.7 X10^3/uL (4.5-11.0)
[2024-07-16 18:50] LABS: Alanine Aminotransferase 60 IU/L (<50); Albumin 3.9 g/dL (3.5-5.0); Albumin Globulin Ratio 1.7 (1.0-2.8); Alkaline Phosphatase 62 U/L (38-126); Aspartate Aminotransferase 56 IU/L (17-59); BUN Creatinine Ratio 18.6 (6-22); Bilirubin Total 0.5 mg/dL (0.2-1.3); Blood Urea Nitrogen 16 mg/dL (9-20); Calcium 8.9 mg/dL (8.4-10.2); Carbon Dioxide 24 mmol/L (22-32); Chloride 104 mmol/L (98-107); Estimated Glomerular Filt Rate > 60 mL/min (>60); Globulin 2.3 g/dL (1.7-4.1); Glucose 103 mg/dL (80-110); HEMOLYSIS < 15 (0-50); Phosphorous 2.9 mg/dL (2.3-3.7); Potassium 4.3 mmol/L (3.4-5.1); Sodium 133 mmol/L (137-145); Total Protein 6.2 g/dL (6.3-8.2)
== END ==
LOC: LAB 16:22
PROVIDERS: Family Provider Family Medicine; PCP Family Medicine; Referring Provider Physician Assistant; Visit Provider Physician Assistant
DX: C49.A4 Gastrointestinal stromal tumor of large intestine (principal)
CPT/HCPCS: 36415; 80053; 84100; 85025

== ENCOUNTER → 2024-07-30 08:58 | Outpatient (CLI) | payer MEDICARE, SELFPAY ==
--- NOTE | 2024-07-30 | DI.MRI.S_ITS ---
PROCEDURE: MR PELIS WO/W CON INDICATIONS: Colorectal GI stromal tumor recheck TECHNIQUE: Noncontrast coronal T1 spin echo and STIR, sagittal T1 spin echo with fat saturation and STIR, axial T1 spin echo and T2 fast spin echo with fat saturation. After the administration of contrast, axial/sagittal/coronal T1 spin echo with fat saturation through the pelvis. COMPARISON: [facility], MR, MR ABDOMEN WO/W CON, 07/30/2024, 9:13. [facility], MR, MR ABDOMEN WO/W CON, 04/21/2024, 10:01. [facility], MR, MR ABDOMEN WO/W CON, 06/14/2023, 8:57. Outside Facility, RG, MRI ABDOMEN/PELVIS OUTSIDE FILMS, 03/05/2022, 14:13. Outside Facility, RG, MRI ABDOMEN/PELVIS OUTSIDE FILMS, 02/08/2021, 9:48. [facility], MR, PELVIS W&WO CONTRAST, 10/28/2014, 7:43. [facility], MR, MR PELVIS WO/W CON, 04/22/2024, 9:58. [facility], , MR PELVIS WO/W CON, 06/15/2023, 9:04. FINDINGS: Image quality: Excellent. Bones: The visualized bone marrow demonstrates normal signal on all sequences. The overlying cortex appears intact. No abnormal intraosseous enhancement. Soft tissues: No soft tissue masses are visualized. The scanned muscles demonstrate normal overall bulk and internal signal. Subcutaneous tissues appear normal as well. No abnormal soft tissue enhancement. The previously identified ovoid enhancing soft tissue mass seen on MR scanning 10/28/14 in the low right paramedian posterior rectal wall is absent. No adenopathy is found. No new colonic mass lesion elsewhere in the field of view has developed. IMPRESSION: No evidence of recurrent low rectal GI stromal tumor neoplasm or development of metastatic disease is found. Dictated by: Hi Amaral M.D. on 07/30/2024 at 15:11 Approved by: Hi Amaral M.D. on 07/30/2024 at 15:16
--- NOTE | 2024-07-30 09:00 | DI.MRI.S_ITS ---
PROCEDURE: MR ABDOMEN WO/W CON INDICATIONS: Gastrointestinal stromal tumor of large intestine. Initial available MRI 10/28/14 identified a right paramedian posterior low rectal wall ovoid mass measuring approximately 1.3 x 1.5 cm. TECHNIQUE: Coronal HASTE, axial 2D FLASH in- and [id number]; axial breath-hold T2 FSE. Dynamic axial VIBE during the administration of contrast; post-contrast coronal VIBE or 2D FLASH with fat saturation from the hepatic dome to the iliac crests. Optional diffusion weighted imaging and ADC may be performed. COMPARISON: [facility], , MR PELVIS WO/W CON, 06/15/2023, 9:04. [facility], , MR PELVIS WO/W CON, 07/30/2024, 9:13. [facility], , MR PELVIS WO/W CON, 04/22/2024, 9:58. Outside Facility, , MRI ABDOMEN/PELVIS OUTSIDE FILMS, 02/08/2021, 9:48. [facility], , PELVIS W&WO CONTRAST, 10/28/2014, 7:43. [facility], , MR ABDOMEN WO/W CON, 04/21/2024, 10:01. [facility], , MR ABDOMEN WO/W CON, 06/14/2023, 8:57. FINDINGS: Image quality: Diagnostic. Lung bases: Unremarkable. Liver: No solid mass. Gallbladder: No gallstones or wall thickening. Biliary ducts: No biliary dilation. Pancreas: No ductal dilation. Spleen: Size is within normal limits. Adrenal Glands: No adrenal nodules. Kidneys and Ureters: No hydronephrosis. No solid mass. No complex renal cystic lesion which requires follow up. Stomach and Bowel: Normal colonic caliber, without significant wall thickening. Peritoneum: No abnormal intraperitoneal fluid. No free air. Ventral Wall: No hernia. Abdominal Nodes: No retroperitoneal or mesenteric adenopathy by size criteria. Vessels: Aorta and inferior vena cava are normal in size. Bones: No aggressive osseous abnormality. IMPRESSION: Normal abdominal MRI, no evidence of metastatic disease related to prior small right low rectal mass lesion identified initially 10/28/14 by MR scanning of the pelvis. Dictated by: Hi Amaral M.D. on 07/30/2024 at 14:41 Approved by: Hi Amaral M.D. on 07/30/2024 at 14:49
[2024-07-30 11:07] LABS: Add Manual Diff / Slide Review NO; Basophils Absolute Auto 0 /uL (0-100); Basophils Percent Auto 0.5 % (0-2); Eosinophils Absolute Auto 100 /uL (0-450); Eosinophils Percent Auto 1.8 % (2-4); Hematocrit 44.5 % (41-53); Lymphocytes Absolute Auto 900 /uL (1100-4500); Lymphocytes Percent Auto 13.1 % (25-40); Mean Corpuscular HGB Conc 33.8 % (30-36); Mean Corpuscular Hemoglobin 36.2 PG (26-34); Mean Corpuscular Volume 107.2 fL (80-100); Monocytes Absolute Auto 500 /uL (0-900); Monocytes Percent Auto 7.3 % (3-14); Neutrophils Absolute Auto 5300 /uL (1500-7000); Neutrophils Percent Auto 77.3 % (50-75); Platelet Count 250 X10^3/uL (150-400); Red Blood Cell Count 4.15 X10^6/uL (4.5-5.9); Red Cell Distribution Width 13.7 % (11.6-14.8); White Blood Cell Count 6.8 X10^3/uL (4.5-11.0)
[2024-07-30 11:08] LABS: Alanine Aminotransferase 77 IU/L (<50); Alkaline Phosphatase 57 U/L (38-126); Aspartate Aminotransferase 65 IU/L (17-59); BUN Creatinine Ratio 17.9 (6-22); Bilirubin Total 0.8 mg/dL (0.2-1.3); Blood Urea Nitrogen 17 mg/dL (9-20); Calcium 8.9 mg/dL (8.4-10.2); Carbon Dioxide 32 mmol/L (22-32); Chloride 101 mmol/L (98-107); Estimated Glomerular Filt Rate > 60 mL/min (>60); Globulin 2.2 g/dL (1.7-4.1); Glucose 99 mg/dL (80-110); HEMOLYSIS < 15 (0-50); Phosphorous 2.6 mg/dL (2.3-3.7); Potassium 4.5 mmol/L (3.4-5.1); Sodium 136 mmol/L (137-145); Total Protein 6.2 g/dL (6.3-8.2)
[2024-07-30 11:09] LABS: Albumin Globulin Ratio 1.8 (1.0-2.8)
== END ==
PROVIDERS: Family Provider Family Medicine; PCP Family Medicine; Referring Provider Physician Assistant; Visit Provider Physician Assistant
DX: C49.A4 Gastrointestinal stromal tumor of large intestine (principal)
CPT/HCPCS: 36415; 72197; 74183; 80053; 84100; 85025; A9579

== ENCOUNTER → 2024-11-26 09:45 | Outpatient (CLI) | payer MEDICARE, SELFPAY ==
[2024-11-26 10:56] LABS: Add Manual Diff / Slide Review NO; Basophils Absolute Auto 0 /uL (0-100); Basophils Percent Auto 0.6 % (0-2); Eosinophils Absolute Auto 100 /uL (0-450); Eosinophils Percent Auto 1.6 % (2-4); Hematocrit 43.9 % (41-53); Hemoglobin 15.4 g/dL (13.5-17.5); Lymphocytes Absolute Auto 900 /uL (1100-4500); Lymphocytes Percent Auto 10.5 % (25-40); Mean Corpuscular HGB Conc 35.1 % (30-36); Mean Corpuscular Hemoglobin 37.2 PG (26-34); Mean Corpuscular Volume 105.9 fL (80-100); Monocytes Absolute Auto 400 /uL (0-900); Monocytes Percent Auto 5.2 % (3-14); Neutrophils Absolute Auto 7000 /uL (1500-7000); Neutrophils Percent Auto 82.1 % (50-75); Platelet Count 239 X10^3/uL (150-400); Red Blood Cell Count 4.14 X10^6/uL (4.5-5.9); Red Cell Distribution Width 12.4 % (11.6-14.8); White Blood Cell Count 8.5 X10^3/uL (4.5-11.0)
[2024-11-26 11:13] LABS: Erythrocyte Sedimentation Rate 1 MM/HR (0-15)
[2024-11-26 11:21] LABS: Alanine Aminotransferase 62 IU/L (<50); Albumin Globulin Ratio 1.9 (1.0-2.8); Alkaline Phosphatase 55 U/L (38-126); Aspartate Aminotransferase 53 IU/L (17-59); BUN Creatinine Ratio 20.4 (6-22); Bilirubin Total 0.8 mg/dL (0.2-1.3); Blood Urea Nitrogen 20 mg/dL (9-20); C-Reactive Protein Quant < 0.5 mg/dL (<1.0); Calcium 9.1 mg/dL (8.4-10.2); Carbon Dioxide 29 mmol/L (22-32); Chloride 104 mmol/L (98-107); Estimated Glomerular Filt Rate > 60 mL/min (>60); Globulin 2.1 g/dL (1.7-4.1); Glucose 81 mg/dL (70-99); HEMOLYSIS < 15 (0-50); Phosphorous 3.2 mg/dL (2.3-3.7); Potassium 4.1 mmol/L (3.4-5.1); Sodium 138 mmol/L (137-145); Total Protein 6.1 g/dL (6.3-8.2)
[2024-11-26 11:23] LABS: Rheumatoid Factor < 8.6 IU/mL (<12.0)
== END ==
LOC: LAB 09:48
PROVIDERS: Family Provider Family Medicine; PCP Family Medicine; Referring Provider Physician Assistant; Visit Provider Physician Assistant
DX: Z79.52 Long term (current) use of systemic steroids (principal); C49.A4 Gastrointestinal stromal tumor of large intestine; M35.3 Polymyalgia rheumatica
CPT/HCPCS: 36415; 80053; 84100; 85025; 85651; 86140; 86200; 86430

== ENCOUNTER → 2024-11-29 09:27 | Outpatient (CLI) | payer MEDICARE, SELFPAY ==
--- NOTE | 2024-11-29 09:59 | DI.MRI.S_ITS ---
PROCEDURE: MR ABDOMEN WO/W CON INDICATIONS: GIST TECHNIQUE: Coronal HASTE, axial 2D FLASH in- and [id number]; axial breath-hold T2 FSE. Dynamic axial VIBE during the administration of contrast; post-contrast coronal VIBE or 2D FLASH with fat saturation from the hepatic dome to the iliac crests. Optional diffusion weighted imaging and ADC may be performed. COMPARISON: [facility], MR, MR ABDOMEN WO/W CON, 07/30/2024, 9:13. FINDINGS: Image quality: Diagnostic Lower chest: Unremarkable lung bases. Lungs are not well evaluated on MRI. No basal effusions Liver: No suspicious focal lesion. Suspect small cysts are present Gallbladder and biliary system: Nondilated biliary system. Under distended gallbladder Pancreas: No ductal dilation Spleen: Nonenlarged Adrenals: No discrete nodules Kidneys: Small cysts are present. No solid mass Prominent renal column in the left interpolar region Vessels and lymph nodes: No enlarged lymph nodes by size criteria. No abdominal aortic aneurysm. Main portal vein is patent. Bowel and peritoneum: No abdominal ascites. No bowel obstruction. Moderate fecal loading. Body wall: Unremarkable Pelvis: Separately dictated Bones: No aggressive appearing osseous abnormality. IMPRESSION: No active metastases identified in the abdomen. Dictated by: Cuco Swanson M.D. on 11/29/2024 at 11:41 Approved by: Cuco Swanson M.D. on 11/29/2024 at 11:46
== END ==
PROVIDERS: Family Provider Family Medicine; PCP Family Medicine; Referring Provider Nurse Practitioner; Visit Provider Nurse Practitioner
DX: C49.A4 Gastrointestinal stromal tumor of large intestine (principal); N28.1 Cyst of kidney, acquired; M35.3 Polymyalgia rheumatica; Z79.52 Long term (current) use of systemic steroids
CPT/HCPCS: 74183; 77080; A9579

== ENCOUNTER → 2024-11-29 10:14 | Outpatient (CLI) | payer MEDICARE, SELFPAY ==
--- NOTE | 2024-11-29 10:15 | DI.RAD.S_ITS ---
PROCEDURE: XR DEXA AXIAL SKELETON INDICATIONS: POLYMYALGIA RHEUMATICA,DATABASE ARCHITECT USE STEROIDS COMPARISON: None. FINDINGS: Lumbar Spine: Bone mineral density 0.983 g/cm2, T score -0.6. Left Femoral Neck: Bone mineral density 0.743 g/cm2, T score -1.0. Left Hip: Bone mineral density 0.825 g/cm2, T score -1.0. Fracture Risk Calculation (when applicable): 10-year fracture risk of a major osteoporotic fracture 8.8 percent and of a hip fracture 2.8 percent. (T score greater or equal to -1.0 to: NORMAL) (T score from -1.1 to -2.4: OSTEOPENIA) (T score less than or equal to -2.5: OSTEOPOROSIS) IMPRESSION: Normal bone mineral density by WHO classification. Follow-up guidelines as follows: Osteoporosis: Consider a repeat DEXA and Vertebral Fracture Assessment (VFA) exam in 2 years or sooner if medically necessary, to reassess this patient's status. Osteopenia: Consider a repeat DEXA in 2-3 years to reassess this patient's status, or if there is a new clinical indication. Normal: Consider a repeat DEXA in 5 years or sooner, or if there is a new clinical indication. All treatment decisions require clinical judgment and consideration of individual patient factors, including patient preferences, comorbidities, previous drug use, risk factors not captured in the FRAX model (e.g., frailty, falls, vitamin D deficiency, increased bone turnover, interval significant decline in bone density ) and possible under- or over-estimation of fracture risk by FRAX. In addition, the NOF Guide recommends that FDA-approved medical therapies be considered in postmenopausal women and men age >= 50 years with a: * Hip or vertebral (clinical or morphometric) fracture * T-score of <=-2.5 at the spine or hip * Ten-year fracture probability by FRAX of >= 3% for hip fracture or >=20% for major osteoporotic fracture. Dictated by: Cruz Hatch M.D. on 11/29/2024 at 12:15 Approved by: Cruz Hatch M.D. on 11/29/2024 at 12:16
== END ==
PROVIDERS: Family Provider Family Medicine; PCP Family Medicine; Referring Provider Physician Assistant; Visit Provider Physician Assistant
DX: Z79.52 Long term (current) use of systemic steroids (principal); M35.3 Polymyalgia rheumatica
CPT/HCPCS: 77080

== ENCOUNTER → 2024-12-01 09:24 | Outpatient (CLI) | payer MEDICARE, SELFPAY ==
--- NOTE | 2024-12-01 10:07 | DI.MRI.S_ITS ---
PROCEDURE: MR PELIS WO/W CON INDICATIONS: GIST TECHNIQUE: Noncontrast coronal T1 spin echo and STIR, sagittal T1 spin echo with fat saturation and STIR, axial T1 spin echo and T2 fast spin echo with fat saturation. After the administration of contrast, axial/sagittal/coronal T1 spin echo with fat saturation through the pelvis . COMPARISON: [facility], MR, MR PELVIS WO/W CON, 06/15/2023, 9:04. [facility], MR, MR PELVIS WO/W CON, 07/30/2024, 9:13. FINDINGS: Image quality: Diagnostic Lower abdomen: No bowel obstruction in the lower abdomen. Bladder: Unremarkable Reproductive organs: Partially seen hydroceles. Prostate is not well assessed on this study. Rectum: Similar dense fibrotic signal is seen at the level of the sphincter at 6-9 o'clock, similar to prior. This is the site of the prior tumor. (). No enlarged mesorectal lymph node Vessels and lymph nodes: No enlarged lymph nodes by size criteria within the no aneurysmal vessel identified Pelvic wall: Unremarkable Bones: No aggressive appearing osseous abnormality. There are degenerative changes. IMPRESSION: Similar fibrosis in the lower rectum at 6-9 o'clock. No measurable mass. No lymphadenopathy by size criteria. Dictated by: Cuco Swanson M.D. on 12/01/2024 at 12:04 Approved by: Cuco Swanson M.D. on 12/01/2024 at 12:09
== END ==
PROVIDERS: Family Provider Family Medicine; PCP Family Medicine; Referring Provider Nurse Practitioner; Visit Provider Nurse Practitioner
DX: C49.A4 Gastrointestinal stromal tumor of large intestine (principal)
CPT/HCPCS: 72197; A9579

== ENCOUNTER → 2025-01-10 14:39 | Outpatient (CLI) | payer MEDICARE, SELFPAY ==
[2025-01-10 17:05] LABS: Alanine Aminotransferase 81 IU/L (<50); Albumin 4.4 g/dL (3.5-5.0); Albumin Globulin Ratio 1.8 (1.0-2.8); Alkaline Phosphatase 53 U/L (38-126); Aspartate Aminotransferase 64 IU/L (17-59); Bilirubin Total 0.7 mg/dL (0.2-1.3); Blood Urea Nitrogen 16 mg/dL (9-20); Calcium 9.1 mg/dL (8.4-10.2); Carbon Dioxide 28 mmol/L (22-32); Chloride 102 mmol/L (98-107); Estimated Glomerular Filt Rate > 60 mL/min (>60); Globulin 2.5 g/dL (1.7-4.1); Glucose 124 mg/dL (70-99); HEMOLYSIS < 15 (0-50); Phosphorous 3.1 mg/dL (2.3-3.7); Potassium 4.2 mmol/L (3.4-5.1); Sodium 140 mmol/L (137-145); Total Protein 6.9 g/dL (6.3-8.2)
== END ==
PROVIDERS: Family Provider Family Medicine; PCP Family Medicine; Referring Provider Family Medicine; Visit Provider Family Medicine
DX: C49.A4 Gastrointestinal stromal tumor of large intestine (principal)
CPT/HCPCS: 36415; 80053; 83735; 84100

== ENCOUNTER → 2025-02-07 11:45 | Outpatient (CLI) | payer MEDICARE, SELFPAY ==
[2025-02-07 13:18] LABS: Alanine Aminotransferase 52 IU/L (<50); Albumin 4.4 g/dL (3.5-5.0); Albumin Globulin Ratio 2.0 (1.0-2.8); Alkaline Phosphatase 65 U/L (38-126); Blood Urea Nitrogen 18 mg/dL (9-20); Calcium 9.4 mg/dL (8.4-10.2); Carbon Dioxide 29 mmol/L (22-32); Chloride 102 mmol/L (98-107); Estimated Glomerular Filt Rate > 60 mL/min (>60); Globulin 2.2 g/dL (1.7-4.1); Glucose 89 mg/dL (70-99); HEMOLYSIS < 15 (0-50); Magnesium 2.0 mg/dL (1.6-2.3); Phosphorous 2.9 mg/dL (2.3-3.7); Potassium 4.9 mmol/L (3.4-5.1); Sodium 137 mmol/L (137-145); Total Protein 6.6 g/dL (6.3-8.2)
== END ==
PROVIDERS: Family Provider Family Medicine; PCP Family Medicine; Referring Provider Physician Assistant; Visit Provider Physician Assistant
DX: C49.A4 Gastrointestinal stromal tumor of large intestine (principal)
CPT/HCPCS: 36415; 80053; 83735; 84100

== ENCOUNTER → 2025-03-01 10:25 | Outpatient (CLI) | payer MEDICARE, SELFPAY ==
--- NOTE | 2025-03-01 10:26 | DI.MRI.S_ITS ---
PROCEDURE: MR ABDOMEN WO/W CON INDICATIONS: GIST TUMOR TECHNIQUE: Coronal HASTE, axial 2D FLASH in- and [id number]; axial breath-hold T2 FSE. Dynamic axial VIBE during the administration of contrast; post-contrast coronal VIBE or 2D FLASH with fat saturation from the hepatic dome to the iliac crests. Optional diffusion weighted imaging and ADC may be performed. COMPARISON: [facility], MR, MR ABDOMEN WO/W CON, 11/29/2024, 9:30. FINDINGS: Image quality: Diagnostic. Slightly limited by motion artifact. Lung bases: Unremarkable. Liver: No suspicious enhancing mass. Gallbladder: Normal without stones or wall thickening. Biliary ducts: No biliary dilation. Pancreas: Mild fatty infiltration. No ductal dilatation or enhancing mass. Spleen: Size is within normal limits. Small splenule in the gastrosplenic ligament anteriorly. Adrenal Glands: No adrenal nodules. Kidneys and Ureters: Symmetric enhancement. No nephrolithiasis or hydronephrosis. No visible mass or cyst requiring follow up. No hydroureter. Stomach and Bowel: Stomach and visible bowel loops are within normal limits. Diverticulosis is present in the visible colon loops. Peritoneum: No abnormal intraperitoneal fluid. No free air. No intraperitoneal nodules or visible mesenteric mass. Ventral Wall: No hernia. Abdominal Nodes: No retroperitoneal or mesenteric adenopathy by size criteria. Vessels: Aorta and inferior vena cava are normal in size. Bones: No aggressive osseous abnormality. IMPRESSION: No evidence of metastatic disease in the abdomen. Dictated by: Tita Harvey M.D. on 03/02/2025 at 10:03 Approved by: Tita Harvey M.D. on 03/02/2025 at 10:12
== END ==
PROVIDERS: Family Provider Family Medicine; PCP Family Medicine; Referring Provider Physician Assistant; Visit Provider Physician Assistant
DX: C49.A4 Gastrointestinal stromal tumor of large intestine (principal)
CPT/HCPCS: 74183; A9579

== ENCOUNTER → 2025-03-03 19:14 | Outpatient (CLI) | payer MEDICARE, SELFPAY ==
--- NOTE | 2025-03-03 | DI.MRI.S_ITS ---
PROCEDURE: MR PELIS WO/W CON INDICATIONS: gist tumor TECHNIQUE: Multiplanar multisequence MR imaging of the pelvis using rectal protocol pre and postcontrast. IV ProHance 10 cc. COMPARISON: [facility], , MR PELVIS WO/W CON, 12/01/2024, 9:30. FINDINGS: Image quality: Excellent. Bowel and peritoneum: Trace amount of T2 hypointense thickening fibrosis around the right posterolateral aspect the low rectum just above the anorectal junction. No suspicious enhancement. No definite measurable mass. Rectum and other bowel loops are otherwise normal in morphology. No pathologic free pelvic fluid. Genitourinary system: Bladder wall is normal in thickness. Distal ureters are non distended. Loculated, moderate-size bilateral hydroceles are redemonstrated. Nodes and vessels: No pathologic pelvic or inguinal adenopathy by size criteria. Iliac vessels are normal in caliber. Soft tissues: Small left fat containing inguinal hernia. Bones: Marrow is normal in overall signal. Degenerative changes in the lumbar spine. IMPRESSION: No significant changes in the anorectal region to suggest recurrent tumor. No adenopathy in the pelvis. Bilateral hydroceles. Dictated by: Tita Harvey M.D. on 03/04/2025 at 14:22 Approved by: Tita Harvey M.D. on 03/04/2025 at 14:33
== END ==
LOC: MRI 19:15
PROVIDERS: Family Provider Family Medicine; PCP Family Medicine; Referring Provider Physician Assistant; Visit Provider Physician Assistant
DX: C49.A4 Gastrointestinal stromal tumor of large intestine (principal); N43.3 Hydrocele, unspecified; K40.90 Unilateral inguinal hernia, without obstruction or gangrene, not specified as recurrent
CPT/HCPCS: 55000; 72197; A9579

== ENCOUNTER → 2025-03-09 13:05 | Outpatient (CLI) | payer MEDICARE, SELFPAY ==
[2025-03-09 14:57] LABS: Add Manual Diff / Slide Review NO; Hematocrit 40.6 % (41-53); Hemoglobin 14.1 g/dL (13.5-17.5); Lymphocytes Absolute Auto 600 /uL (1100-4500); Mean Corpuscular HGB Conc 34.6 % (30-36); Mean Corpuscular Hemoglobin 36.8 PG (26-34); Mean Corpuscular Volume 106.4 fL (80-100); Platelet Count 224 X10^3/uL (150-400)
[2025-03-09 15:15] LABS: Alanine Aminotransferase 36 IU/L (<50); Albumin 4.0 g/dL (3.5-5.0); Albumin Globulin Ratio 1.9 (1.0-2.8); Alkaline Phosphatase 53 U/L (38-126); Blood Urea Nitrogen 23 mg/dL (9-20); Calcium 8.9 mg/dL (8.4-10.2); Carbon Dioxide 29 mmol/L (22-32); Chloride 102 mmol/L (98-107); Estimated Glomerular Filt Rate > 60 mL/min (>60); Globulin 2.1 g/dL (1.7-4.1); Glucose 92 mg/dL (70-99); HEMOLYSIS < 15 (0-50); Magnesium 2.0 mg/dL (1.6-2.3); Phosphorous 2.9 mg/dL (2.3-3.7); Potassium 4.8 mmol/L (3.4-5.1); Sodium 137 mmol/L (137-145); Total Protein 6.1 g/dL (6.3-8.2)
[2025-03-09 15:47] LABS: TSH w/ Reflex to FT4 1.51 uIU/mL (0.47-4.68)
== END ==
PROVIDERS: Family Provider Family Medicine; PCP Family Medicine; Referring Provider Physician Assistant; Visit Provider Physician Assistant
DX: C49.A4 Gastrointestinal stromal tumor of large intestine (principal)
CPT/HCPCS: 80053; 83735; 84100; 84443; 85025

== ENCOUNTER → 2025-04-06 15:35 | Outpatient (CLI) | payer MEDICARE, SELFPAY ==
[2025-04-06 17:15] LABS: Alanine Aminotransferase 35 IU/L (<50); Albumin 3.9 g/dL (3.5-5.0); Albumin Globulin Ratio 1.7 (1.0-2.8); Alkaline Phosphatase 53 U/L (38-126); Blood Urea Nitrogen 23 mg/dL (9-20); Calcium 8.7 mg/dL (8.4-10.2); Carbon Dioxide 30 mmol/L (22-32); Chloride 103 mmol/L (98-107); Estimated Glomerular Filt Rate > 60 mL/min (>60); Globulin 2.3 g/dL (1.7-4.1); Glucose 99 mg/dL (70-99); HEMOLYSIS < 15 (0-50); Magnesium 2.1 mg/dL (1.6-2.3); Phosphorous 3.0 mg/dL (2.3-3.7); Potassium 4.1 mmol/L (3.4-5.1); Sodium 137 mmol/L (137-145); Total Protein 6.2 g/dL (6.3-8.2)
== END ==
PROVIDERS: Family Provider Family Medicine; PCP Family Medicine; Referring Provider Nurse Practitioner; Visit Provider Nurse Practitioner
DX: C49.A4 Gastrointestinal stromal tumor of large intestine (principal)
CPT/HCPCS: 36415; 80053; 83735; 84100

== ENCOUNTER → 2025-05-06 10:21 | Outpatient (CLI) | payer MEDICARE, SELFPAY ==
[2025-05-06 13:11] LABS: Alanine Aminotransferase 94 IU/L (<50); Albumin 4.3 g/dL (3.5-5.0); Albumin Globulin Ratio 2.0 (1.0-2.8); Alkaline Phosphatase 56 U/L (38-126); Blood Urea Nitrogen 14 mg/dL (9-20); Calcium 9.2 mg/dL (8.4-10.2); Carbon Dioxide 29 mmol/L (22-32); Chloride 101 mmol/L (98-107); Estimated Glomerular Filt Rate > 60 mL/min (>60); Globulin 2.2 g/dL (1.7-4.1); Glucose 108 mg/dL (70-99); HEMOLYSIS < 15 (0-50); Magnesium 2.0 mg/dL (1.6-2.3); Phosphorous 2.9 mg/dL (2.3-3.7); Potassium 4.5 mmol/L (3.4-5.1); Sodium 138 mmol/L (137-145); Total Protein 6.5 g/dL (6.3-8.2)
[2025-05-06 13:38] LABS: Prostate Specific Antigen 0.583 ng/mL (0.10-4.00)
== END ==
PROVIDERS: Family Provider Family Medicine; PCP Family Medicine; Referring Provider Family Medicine; Visit Provider Nurse Practitioner
DX: C49.A4 Gastrointestinal stromal tumor of large intestine (principal); Z12.5 Encounter for screening for malignant neoplasm of prostate
CPT/HCPCS: 36415; 80053; 83735; 84100; 84153

== ENCOUNTER → 2025-05-25 15:27 | Outpatient (CLI) | payer MEDICARE, SELFPAY ==
[2025-05-25 17:53] LABS: Add Manual Diff / Slide Review NO; Hematocrit 39.9 % (41-53); Hemoglobin 14.0 g/dL (13.5-17.5); Lymphocytes Absolute Auto 1100 /uL (1100-4500); Mean Corpuscular HGB Conc 35.0 % (30-36); Mean Corpuscular Hemoglobin 37.0 PG (26-34); Mean Corpuscular Volume 105.7 fL (80-100); Platelet Count 236 X10^3/uL (150-400)
[2025-05-25 18:18] LABS: Alanine Aminotransferase 226 IU/L (<50); Albumin 4.3 g/dL (3.5-5.0); Albumin Globulin Ratio 2.0 (1.0-2.8); Alkaline Phosphatase 66 U/L (38-126); Blood Urea Nitrogen 22 mg/dL (9-20); Calcium 9.2 mg/dL (8.4-10.2); Carbon Dioxide 28 mmol/L (22-32); Chloride 101 mmol/L (98-107); Estimated Glomerular Filt Rate > 60 mL/min (>60); Globulin 2.2 g/dL (1.7-4.1); Glucose 91 mg/dL (70-99); HEMOLYSIS < 15 (0-50); Potassium 4.5 mmol/L (3.4-5.1); Sodium 137 mmol/L (137-145); Total Protein 6.5 g/dL (6.3-8.2)
== END ==
PROVIDERS: Family Provider Family Medicine; PCP Family Medicine; Referring Provider Nurse Practitioner; Visit Provider Nurse Practitioner
DX: C49.A4 Gastrointestinal stromal tumor of large intestine (principal)
CPT/HCPCS: 36415; 80053; 85025

== ENCOUNTER → 2025-07-08 10:36 | Outpatient (CLI) | payer MEDICARE, SELFPAY ==
[2025-07-08 11:17] LABS: Add Manual Diff / Slide Review NO; Hematocrit 45.4 % (41-53); Hemoglobin 15.5 g/dL (13.5-17.5); Lymphocytes Absolute Auto 900 /uL (1100-4500); Mean Corpuscular HGB Conc 34.1 % (30-36); Mean Corpuscular Hemoglobin 35.1 PG (26-34); Mean Corpuscular Volume 102.9 fL (80-100); Platelet Count 273 X10^3/uL (150-400)
[2025-07-08 11:36] LABS: Alanine Aminotransferase 148 IU/L (<50); Albumin 4.1 g/dL (3.5-5.0); Albumin Globulin Ratio 1.6 (1.0-2.8); Alkaline Phosphatase 54 U/L (38-126); Blood Urea Nitrogen 18 mg/dL (9-20); Calcium 9.5 mg/dL (8.4-10.2); Carbon Dioxide 30 mmol/L (22-32); Chloride 101 mmol/L (98-107); Estimated Glomerular Filt Rate > 60 mL/min (>60); Globulin 2.5 g/dL (1.7-4.1); Glucose 83 mg/dL (70-99); Magnesium 2.0 mg/dL (1.6-2.3); Potassium 4.9 mmol/L (3.4-5.1); Sodium 138 mmol/L (137-145); Total Protein 6.6 g/dL (6.3-8.2)
[2025-07-08 12:06] LABS: TSH w/ Reflex to FT4 1.66 uIU/mL (0.47-4.68)
[2025-07-08 17:40] LABS: HEMOLYSIS 25 (0-50); Phosphorous 3.8 mg/dL (2.3-3.7)
== END ==
PROVIDERS: Family Provider Family Medicine; PCP Family Medicine; Referring Provider Nurse Practitioner; Visit Provider Nurse Practitioner
DX: C49.A4 Gastrointestinal stromal tumor of large intestine (principal)
CPT/HCPCS: 36415; 80053; 83735; 84100; 84443; 85025

== ENCOUNTER → 2025-07-20 08:47 | Outpatient (CLI) | payer MEDICARE, SELFPAY ==
--- NOTE | 2025-07-20 09:22 | DI.MRI.S_ITS ---
PROCEDURE: MR ABDOMEN WO/W CON INDICATIONS: GIST TECHNIQUE: Coronal HASTE, axial 2D FLASH in- and [id number]; axial breath-hold T2 FSE. Dynamic axial VIBE during the administration of contrast; post-contrast coronal VIBE or 2D FLASH with fat saturation from the hepatic dome to the iliac crests. Optional diffusion weighted imaging and ADC may be performed. COMPARISON: [facility], , MR ABDOMEN WO/W CON, 03/01/2025, 11:06. FINDINGS: Image quality: Diagnostic. Lung bases: No pleural or pericardial effusion. Liver: No solid or enhancing mass. Gallbladder: No stones, wall thickening, or pericholecystic fluid Biliary ducts: No biliary dilation. Pancreas: Normal size and morphology without visible ductal dilatation or inflammation. Spleen: Size is within normal limits. Adrenal Glands: No adrenal nodules. Kidneys and Ureters: No hydronephrosis. No solid mass. No complex renal cystic lesion which requires follow up. Stomach and Bowel: Stomach and visible bowel loops are within normal limits. Peritoneum: No abnormal intraperitoneal fluid.. Ventral Wall: No hernia. Abdominal Nodes: No retroperitoneal or mesenteric adenopathy by size criteria. Vessels: The abdominal aorta, IVC, and portal vein are of normal caliber. Bones: No aggressive osseous abnormality. IMPRESSION: No evidence of metastatic disease in the abdomen. Dictated by: Tita Harvey M.D. on 07/22/2025 at 8:54 Approved by: Tita Harvey M.D. on 07/22/2025 at 9:07
== END ==
LOC: MRI 08:47
PROVIDERS: PCP Family Medicine; Referring Provider Physician Assistant; Visit Provider Physician Assistant
DX: C49.A4 Gastrointestinal stromal tumor of large intestine (principal)
CPT/HCPCS: 74183; A9579

== ENCOUNTER → 2025-07-22 12:57 | Outpatient (CLI) | payer MEDICARE, SELFPAY ==
--- NOTE | 2025-07-22 13:00 | DI.MRI.S_ITS ---
PROCEDURE: MR PELIS WO/W CON INDICATIONS: GIST TECHNIQUE: Coronal HASTE, sagittal T2 FSE, axial T1 FSE, axial and coronal nonbreath-hold T2 FSE. Axial dynamic VIBE during administration of contrast. Post-contrast axial and coronal VIBE/2-D FLASH with fat saturation from the iliac crests to the symphysis. Optional diffusion weighted imaging and ADC may be performed. COMPARISON: [facility], , MR PELVIS WO/W CON, 03/03/2025, 19:22. FINDINGS: Image quality: Excellent. Rectum: Distal rectum and anorectal region are decompressed. No visible recurrent tumor or suspicious enhancement. There is micro metallic artifact in the left posterior anorectal region of prior surgery. Other bowel and peritoneum: No pathologic free pelvic fluid. More proximal colon and small bowel loops are normal in caliber. Other soft tissues: The urinary bladder, distal ureters, prostate gland, seminal vesicles appear normal. Stable, complicated bilateral hydroceles and probable epididymal cysts. Tiny left fat containing inguinal hernia. No pathologic adenopathy in the pelvis. Bones: Marrow is normal in overall signal. IMPRESSION: No MR evidence of local recurrence. No finding of suspicious adenopathy. Dictated by: Tita Harvey M.D. on 07/22/2025 at 16:05 Approved by: Tita Harvey M.D. on 07/22/2025 at 16:36
[2025-07-22 15:30] LABS: Alanine Aminotransferase 101 IU/L (<50); Albumin 4.1 g/dL (3.5-5.0); Albumin Globulin Ratio 1.7 (1.0-2.8); Alkaline Phosphatase 57 U/L (38-126); Blood Urea Nitrogen 15 mg/dL (9-20); Calcium 9.4 mg/dL (8.4-10.2); Carbon Dioxide 28 mmol/L (22-32); Chloride 104 mmol/L (98-107); Estimated Glomerular Filt Rate > 60 mL/min (>60); Globulin 2.4 g/dL (1.7-4.1); Glucose 99 mg/dL (70-99); HEMOLYSIS < 15 (0-50); Potassium 4.4 mmol/L (3.4-5.1); Sodium 139 mmol/L (137-145); Total Protein 6.5 g/dL (6.3-8.2)
== END ==
LOC: MRI 12:58
PROVIDERS: PCP Family Medicine; Referring Provider Physician Assistant; Visit Provider Physician Assistant
DX: C49.A4 Gastrointestinal stromal tumor of large intestine (principal); N43.3 Hydrocele, unspecified
CPT/HCPCS: 36415; 72197; 80053; A9579